=== PATIENT | female | born 1940 | race Caucasian/White ===

== ENCOUNTER 2017-12-01 18:37 | Emergency (ER) | payer MEDICARE ==
--- OUTSIDE RECORDS SUMMARY | 2017-12-01 18:56 | XMS REPORT ---
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 Active Onset: 08/14/2007 Hyperlipidemia Jay Smart M.D. Active Onset: 08/14/2007 Osteochondropathy Jay Smart M.D. Active Onset: 09/08/2017 Idiopathic scoliosis AND/OR Laurence Levin M.D. Active kyphoscoliosis Family History Date Family Member(s) Problem(s) Comments General No family hx lung,colon, breast CA.No fam hx DM. Father 82 dt pneumonia, MRSA. [place]. Mother Sep 06, 2009. fell down the stairs. age 91. Neuropathy. First Son high cholesterol. poor eyesight. [facility] Second Son high cholesterol, HTN. [place]. First Daughter food allergies. Julian. Second Brother ministrokes. diverticulitis Third Brother esophageal stricture. Social History Type Date Description Comments Education Highest level of education completed is 12th grade Marital Status Patient is . of colon cancer 1997. 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 Cigarette Use Never Smoked Cigarettes ETOH Use Rare once in a blue hutchison, at special occNeuMoDx Molecular. Smoking Patient has never smoked Exercise Type/Frequency Exercises rarely active with Current grandchildren, gardening. Formula XO senior strength training exercise 2x/week. Seat Belt/Car Seat Always uses a seat belt Smoke Alarms There are smoke alarms in the house Allergies, Adverse Reactions, Alerts Date Description Reaction Status Severity Comments 04/05/2000 Amoxicillin active Medications Medication Date Status Form Strength Qnty SIG Indications Ordering Provider Tums 10/18 Active Chewtabs 500mg 60uni 2 po R05 Kenna ts daily Patel, BACON STRINGER Irbesartan 09/08 Active Tablets 150mg 30tab 1 by R05 Laurence L. /2017 s mouth Ollie, every day M.D. Metoprolol 09/08 Active Tablets 25mg 90tab take one Laurence LJenifer Tartrate /2017 s tablet by Ollie, mouth M.D. once a day Flonase Allergy 08/02 Active Suspension 50mcg/Act 3Mont 2 sprays Elaina C. 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 day Wrist-Thumb 09/28 Active Misc Right 1unit to wear 959.3 [place] Support/Neoprene /2012 s on right Aniket, wrist as Afnp-C directed Vitamin D3 05/05 Active 2000Unit 90uni 1 po qd E55.9 Joyce Gerber. /2010 esperanza Griffith M.D. Fenofibrate 08/05 Active Tablets 160mg 90tab Take 1 Laurence L. /2009 s Tablet By Ollie, Mouth M.D. Every Day Hydrochlorothiazi 05/06 Active Capsules 12.5mg 90cap Take 1 I10 Laurence Wilder de s Capsule Ollei, By Mouth M.D. Every Morning Calcium Active Caplets 1000 1 po qd Unknown /0000 Fish Oil Active Capsules 1000mg take one Unknown /0000 capsule by mouth every day (heart health) Multivitamin Active Tablets 1 by Unknown Adult /0000 mouth every day Magnesium Active once a Unknown /0000 day Metoprolol 09/05 Hx Tablets ER 50mg 90tab take 02/07 Laurence L. Succinate ER 24HR s tablet by Ollie, - mouth M.D. 09/08 once day. Doxycycline 06/11 Hx Tablets 100mg 6tabs 2 by S70.262A Jocelyne Doran Hyclate /2016 mouth Nicola, MAINTENANCE PARTS TECHNICIAN - once for 09/07 each tick bite Azithromycin 02/22 Hx Tablets 250mg 6tabs 2 by R05 Laurence LJenifer /2016 mouth Ollie, - today. 1 M.D. 03/08 by mouth daily x 4 Cheratussin ac 03/10 Hx Syrup 100-10mg/ 120ml 2 J06.9 5ML teaspoon Ankit, - every 4 BACON STRINGER 06/09 hours needed Doxycycline 03/10 Hx Tablets 100mg 20tab 1 by J06.9 Mindy ate s mouth Ankit, - twice a BACON STRINGER 07/15 day x 10 Clotrimazole/Beta 12/11 Hx Cream 1-0.05% 30gm apply bid 782.1 [place] methasone for no Aniket, Dipropionate - more then Afnp-C 04/26 2 wk Azithromycin 05/10 Hx Tablets 250mg 6tabs 2 po 461.0 Dean A. /2012 today and Jamin Handley - 1 po x 4 Medrol Dosepak 05/10 Hx Tablets 4mg 1tabs use as 461.0 Dean A. directed Jamin Handley - 11/20 Flonase 05/10 Hx Suspension 50mcg/Act 3Mont 2 sprays Laurence Hdz /2012 hs each meron Levin, - qd; june M.D. 08/02 fill generic Physical Therapy 05/06 Hx dx:neck Joyce M. /2010 pain, LaFace, - muscle M.D. 05/10 spasm (normal c-spine xray); assess and treat Omeprazole 05/05 Hx Capsules 20mg 90cap take [address] tammie Levin, - by mouth M.D. 01/18 every day Zithromax 01/23 Hx Tablets 250mg 1tabs 2 po qd 461.8 Jay F. Bing rocha - then 1 po M.D. 01/30 qd times 4 Meclizine HCL 05/05 Hx Tablets 25mg 30tab 1 po q 8 . s hours prn Karen Griffith M.DJenifer 05/05 Guafenesin 05/05 Hx 600mg 30uni 2 po bid ts Karen Griffith M.DJenifer 05/05 Actonel 02/10 Hx Tablets 150mg once a 272.4 . month Karen GriffithDJenifer 05/10 Zithromax 03/21 Hx Tablets 250mg 1tabs 2 po qd 461.8 . Nacho rocha - then 1 po M.D. 03/30 qd times 4 Actonel 08/13 Hx Tablets 35mg 90tab 1 q week Jay F. /2007 Karen Magdaleno.DJenifer 03/21 Fenofibrate 07/16 Hx Capsules 134mg 90cap 1 po qd Jay F. Micron Karen MagdalenoDJenifer 05/05 Fenofibrate 07/05 Hx Tablets 54mg 30tab 1 PO qd Jay F. Karen Magdaleno.DJenifer 07/05 Fenofibrate 07/05 Hx Tablets 54mg 180ta 2 PO qd Jay F. /2007 bs Karen Smart.DJenifer 07/16 Flonase 11/29 Hx [place] 50mcg/Spr 3Mont 2 sprays . ay hs each meron Griffith - qd M.D. 05/10 Nasacort Aq 07/26 Hx Suspension 55mcg/Act 1unit 2 sprays Louise Intranasal [place] /2004 uation s each Fish, - nares qd Afnp-C 11/29 Tricor 04/29 Hx 48mg 135un 1 1 Jay F. /2004 its tabs po Shallmechelle, - qd M.D. 07/05 Robitussin ac 01/23 Hx 40Z 1 tsp po Maria Guadalupe R q4h prn Kofi, - BACON STRINGER-C 07/26 Tricor 10/19 Hx 54mg 30uni 1 po qd Louise [facility], - Afnp-C 04/29 Antivert 08/18 Hx 25mg 15uni 1 po q 8 hrs prn [facility], - Afnp-C 07/26 HCTZ - 05/06 Hx 12.5mg 90uni 1 po qam Dean A. Hydrochlorothiaz esperanza Handley M.D. de - 05/09 Biaxin 02/27 Hx 500mg 20uni 1 po bid [facility], - Afnp-C 03/01 Biaxin 02/15 Hx Tabs 500mg 20tab 1 po bid [facility], - Afnp-C 02/25 Zithromax 10/10 Hx 250mg 6unit 2 Tabs Mindy s Day 1 Ankit, - BACON STRINGER 05/06 1 Tab qd Days 2 Thru 5 Robitussin ac 10/10 Hx Liq 4Oz 12-1 TSP Maria Guadalupe PO Q4HS Kofi, - prn Cough BACON STRINGER-C 05/06 Doxycycline 12/04 Hx 100mg 20uni 1 po bid Maria Guadalupe Kofi, - BACON STRINGER-C 07/26 Biaxin 12/01 Hx Tabs 500mg 20tab 1 PO bid [facility], - Afnp-C 12/04 Premarin 04/05 Hx 0.625mg 0unit 1 PO 1-2 [facility] [place] Claritin 04/05 Hx 10mg 30uni 1 PO qd Jay F. esperanza Smart - Jamin 07/26 Vasotec 04/05 Hx Tablets 20mg 90tab take 1 R05 Laurence LJenifer s tablet by Ollie, - mouth M.DJenifer 09/08 every day /2017 -- maximum dose of 1 per day Atenolol 04/05 Hx Tablets 50mg 90tab Take 02/07 I1 s Tablet By Ankit, - Mouth BACON STRINGER 09/07 Actonel Hx Tablets 150mg use 1 a / month - 02/10 Medications Administered in Office Medication Date Status Form Strength Qnty SIG Indications Ordering Provider TB Intradermal Administered Injection Joyce North Test 010 Jamin Griffith TB Intradermal Administered Injection Jay FJenifer Test 008 Jamin Smart TB Intradermal Administered Injection Jay F. Test 006 Jamin Smart TB Intradermal Administered Injection Louise Test 004 Anastasia Whitten TB Intradermal Administered Injection Nurse, Test 004 Nurse TB Intradermal Administered Injection Nurse, Test 002 Nurse Immunizations CPT Code Status Date Vaccine Lot # [id number] Given 12/06/2016 High-Dose, Influenza Virus Vacccine-fluzone 65 and older 44540 Given 12/26/2014 Pneumococcal Conjugate Vacc-13 [id number] 52957 Given 12/06/2014 High-Dose, Influenza Virus Vacccine-fluzone 65 and older 19018 Given 12/31/2013 High-Dose, Influenza Virus Vacccine-fluzone 65 and older 86208 Given 11/20/2012 High-Dose, Influenza Virus Vacccine-fluzone 65 and [id number] older 70914 Given 08/22/2011 Tdap Tetanus, W Pertussis [id number] 79879 Given 11/18/2010 DO Not Use Split Influenza Virus Vaccine 46304 Given 02/10/2009 Zostivax [id number] 16022 Given 01/10/2009 DO Not Use Split Influenza Virus Vaccine [id number] 50174 Given 12/22/2007 DO Not Use Split Influenza Virus Vaccine [id number] 94275 Given 08/14/2007 Pneumococcal Immunization [id number] 14772 Given 11/29/2006 DO Not Use Split Influenza Virus Vaccine [id number] 38468 Given 02/01/2006 DO Not Use Split Influenza Virus Vaccine [id number] 60677 Given 12/31/2002 DO Not Use Split Influenza Virus Vaccine 33774 Given 12/31/2002 DO Not Use Split Influenza Virus Vaccine 40452 Given 12/01/2001 DO Not Use Split Influenza Virus Vaccine 63990 Given 01/03/2001 Influenza Immunization Vital Signs Date Vital Result Comment 11/15/2017 BP Systolic 126 mmHg BP Diastolic 80 mmHg Heart Rate 56 /min Body Temperature 97.4 F Respiratory Rate 16 /min Weight 117.00 lb 10/18/2017 BP Systolic 148 mmHg BP Diastolic 78 mmHg Heart Rate 72 /min Body Temperature 97.3 F Respiratory Rate 18 /min Weight 117.38 lb 09/08/2017 BP Systolic 138 mmHg BP Diastolic 82 mmHg Heart Rate 60 /min Body Temperature 97.2 F Height 62 inches 5'2" Weight 115.00 lb BMI (Body Mass Index) 21.0 kg/m2 06/11/2016 BP Systolic 126 mmHg BP Diastolic 74 mmHg Heart Rate 56 /min Body Temperature 98.6 F Respiratory Rate 16 /min Height 62 inches 5'2" Weight 124.12 lb BMI (Body Mass Index) 22.7 kg/m2 02/23/2016 BP Systolic 128 mmHg BP Diastolic 80 mmHg Heart Rate 64 /min Body Temperature 98.3 F Respiratory Rate 16 /min Height 62 inches 5'2" Weight 126.00 lb BMI (Body Mass Index) 23.0 kg/m2 01/19/2016 BP Systolic 120 mmHg BP Diastolic 78 mmHg Heart Rate 60 /min Body Temperature 98.2 F Respiratory Rate 16 /min Height 62 inches 5'2" Weight 124.00 lb BMI (Body Mass Index) 22.7 kg/m2 08/05/2015 BP Systolic 130 mmHg BP Diastolic 88 mmHg Heart Rate 68 /min Body Temperature 98.3 F Respiratory Rate 18 /min Weight 128.00 lb 07/16/2015 BP Systolic 188 mmHg BP Diastolic 92 mmHg BP Systolic Recheck 142 mmHg after 20 min BP Diastolic Recheck 92 mmHg after 20 min Heart Rate 68 /min Body Temperature 97.2 F Respiratory Rate 18 /min Height 62 inches 5'2" Weight 130.00 lb BMI (Body Mass Index) 23.8 kg/m2 03/10/2015 BP Systolic 190 mmHg BP Diastolic 82 mmHg Heart Rate 68 /min Body Temperature 97.2 F Height 62 inches 5'2" Weight 127.00 lb BMI (Body Mass Index) 23.2 kg/m2 12/26/2014 BP Systolic 120 mmHg BP Diastolic 88 mmHg Heart Rate 64 /min Body Temperature 99.0 F Respiratory Rate 18 /min Height 62 inches 5'2" Weight 126.00 lb BMI (Body Mass Index) 23.0 kg/m2 04/26/2013 BP Systolic 120 mmHg BP Diastolic 70 mmHg Heart Rate 60 /min Body Temperature 98.1 F Respiratory Rate 18 /min Height 62.75 inches 5'2.75" measured Weight 135.00 lb BMI (Body Mass Index) 24.1 kg/m2 12/11/2012 BP Systolic 130 mmHg BP Diastolic 86 mmHg Heart Rate 60 /min Body Temperature 98.2 F Height 62.75 inches 5'2.75" measured Weight 135.00 lb BMI (Body Mass Index) 24.1 kg/m2 11/20/2012 BP Systolic 120 mmHg BP Diastolic 74 mmHg Heart Rate 48 /min Body Temperature 97.7 F Respiratory Rate 16 /min Height 62.75 inches 5'2.75" measured Weight 131.12 lb BMI (Body Mass Index) 23.4 kg/m2 09/28/2012 BP Systolic 138 mmHg BP Diastolic 86 mmHg Heart Rate 66 /min Body Temperature 98.9 F Respiratory Rate 16 /min Height 62.5 inches 5'2.50" Weight 136.00 lb BMI (Body Mass Index) 24.5 kg/m2 05/10/2012 BP Systolic 168 mmHg BP Diastolic 70 mmHg Heart Rate 66 /min Body Temperature 97.9 F Height 62.5 inches 5'2.50" Weight 141.50 lb BMI (Body Mass Index) 25.5 kg/m2 05/11/2011 BP Systolic 120 mmHg BP Diastolic 80 mmHg Heart Rate 60 /min Body Temperature 98.5 F Height 62.5 inches 5'2.50" Weight 134.00 lb BMI (Body Mass Index) 24.1 kg/m2 05/05/2010 BP Systolic 110 mmHg BP Diastolic 60 mmHg Heart Rate 68 /min Respiratory Rate 15 /min Height 62.5 inches 5'2.50" Weight 135.00 lb BMI (Body Mass Index) 24.3 kg/m2 05/05/2009 BP Systolic 142 mmHg BP Diastolic 80 mmHg Heart Rate 52 /min Weight 141.00 lb 02/10/2009 BP Systolic 132 mmHg BP Diastolic 76 mmHg Heart Rate 76 /min Respiratory Rate 16 /min Height 62.5 inches 5'2.50" Weight 138.00 lb BMI (Body Mass Index) 24.8 kg/m2 03/21/2008 BP Systolic 120 mmHg BP Diastolic 70 mmHg Heart Rate 68 /min Body Temperature 99.1 F Weight 133.00 lb 08/14/2007 BP Systolic 142 mmHg BP Diastolic 78 mmHg Heart Rate 72 /min Body Temperature 98.6 F Height 62.5 inches 5'2.50" Weight 131.00 lb BMI (Body Mass Index) 23.6 kg/m2 01/23/2007 BP Systolic 124 mmHg BP Diastolic 74 mmHg Heart Rate 80 /min Body Temperature 98.2 F Height 62.5 inches 5'2.50" Weight 130.00 lb BMI (Body Mass Index) 23.4 kg/m2 12/25/2006 BP Systolic 148 mmHg BP Diastolic 84 mmHg Heart Rate 64 /min Body Temperature 97.6 F Weight 129.00 lb 11/29/2006 BP Systolic 160 mmHg BP Diastolic 90 mmHg Heart Rate 76 /min Weight 128.00 lb 11/09/2005 BP Systolic 122 mmHg BP Diastolic 72 mmHg Heart Rate 66 /min Respiratory Rate 12 /min 05/26/2005 BP Systolic 128 mmHg BP Diastolic 80 mmHg Heart Rate 76 /min Respiratory Rate 15 /min 07/26/2004 BP Systolic 132 mmHg BP Diastolic 70 mmHg Heart Rate 60 /min Weight 126.00 lb 01/24/2004 BP Systolic 128 mmHg BP Diastolic 78 mmHg Heart Rate 80 /min Body Temperature 97.1 F Weight 126.00 lb 01/24/2004 BP Systolic 130 mmHg BP Diastolic 80 mmHg Heart Rate 76 /min Body Temperature 98.6 F Weight 180.00 lb 12/10/2003 BP Systolic 132 mmHg BP Diastolic 82 mmHg Heart Rate 74 /min 09/17/2003 BP Systolic 130 mmHg BP Diastolic 86 mmHg Heart Rate 60 /min Weight 133.00 lb 07/23/2003 BP Systolic 150 mmHg BP Diastolic 88 mmHg Heart Rate 74 /min Weight 138.00 lb 05/07/2003 BP Systolic 152 mmHg BP Diastolic 100 mmHg Heart Rate 62 /min Weight 138.00 lb 02/15/2003 BP Systolic 140 mmHg BP Diastolic 80 mmHg Body Temperature 98.6 F Weight 137.00 lb 10/10/2002 BP Systolic 130 mmHg BP Diastolic 80 mmHg Heart Rate 78 /min Body Temperature 97.9 F Weight 140.00 lb 08/23/2002 BP Systolic 174 mmHg BP Diastolic 100 mmHg Heart Rate 64 /min Weight 139.00 lb 12/01/2001 BP Systolic 152 mmHg BP Diastolic 80 mmHg Heart Rate 64 /min Body Temperature 97.8 F Weight 135.00 lb 05/03/2000 BP Systolic 148 mmHg BP Diastolic 84 mmHg Heart Rate 60 /min Body Temperature 97.3 F Weight 134.00 lb 04/05/2000 BP Systolic 160 mmHg BP Diastolic 90 mmHg Heart Rate 60 /min Body Temperature 98.1 F Weight 134.00 lb Results Test Date Test Result H/L Range Note Lipid Profile 09/08/2017 Cholesterol 160 mg/dL 120-200 Triglycerides 86 mg/dL 30-200 HDL Cholesterol 55 mg/dL 30-85 LDL (Calculated) 88 CALC 0-129 VLDL Cholesterol 17 mg/dL 0-50 HDL Risk Factor 2.9 CALC 0.0-4.4 CBC Electronic Fma 09/08/2017 WBC 6.6 x10^3/UL 4.0-10.0 RBC 3.94 x10^6/UL 3.93-6.00 HGB 12.0 g/dL 12.0-17.0 HCT 36 % 35-50 MCV 91.6 fL 80.0-95.0 MCH 30.5 pg 25.6-32.2 MCHC 33.2 g/dL 32.2-36.0 RDW-CV 15.3 % High 11.6-14.4 PLT 251 x10^3/UL 163-400 MPV 10.2 fL 9.4-12.4 [place]am[place]# 3.99 x10^3/UL 1.56-6.13 Lymph# 1.82 x10^3/UL 1.18-3.74 [place]# 0.52 x10^3/UL 0.24-0.82 Eos # 0.1 x10^3/UL 0.0-0.5 Baso # 0.10 x10^3/UL High 0.01-0.08 [place]amir% 60.9 % 34.0-70.0 Lymph % 27.8 % 20.0-52.0 [place]% 7.9 % 5.0-12.0 Eos% 1.7 % 0.7-7.0 Baso% 1.5 % High 0.1-1.2 Laboratory test finding 09/08/2017 CK 128 U/L 26-140 TSH 2.65 mIU/L 0.50-6.00 Vitamin D25 61 30-100 Comprehensive Metabolic Prof 09/08/2017 Sodium 138 mEq/L 134-149 Potassium 3.2 mEq/L Low 3.6-5.5 1 Chloride 100 mEq/L 94-112 Carbon Dioxide 28 mEq/L 21-32 Glucose 96 mg/dL 70-105 BUN 29 mg/dL High 6-26 Creatinine 0.9 mg/dL 0.6-1.4 BUN/Creat Ratio 32.2 CALC 8.0-36.0 Calcium 9.7 mg/dL 8.6-10.2 Total Protein 7.2 g/dL 6.4-8.3 Albumin 4.5 g/dL 3.8-5.5 Globulin 2.7 g/dL 2.0-4.8 A/G Ratio 1.7 CALC 0.6-2.3 Alk. Phosphatase 34 U/L 30-110 Alt (SGPT) 24 U/L 7-35 Ast (Sgot) 37 U/L High 5-34 2 Total Bilirubin 0.5 mg/dL 0.2-1.3 GFR Non- >60 ml/min/1.73m^ >=60 GFR >60 ml/min/1.73m^ >=60 Laboratory test finding 04/26/2016 Surgical Interface SEE RESULT BELOW 3 Order Laboratory test finding 02/23/2016 BUN 23 mg/dL 6-26 Creatinine 0.9 mg/dL 0.6-1.4 Comprehensive Metabolic Prof 02/09/2016 Sodium 143 mEq/L 134-149 Potassium 5.2 mEq/L 3.6-5.5 Chloride 103 mEq/L 94-112 Carbon Dioxide 29 mEq/L 21-32 Glucose 105 mg/dL 70-105 BUN 26 mg/dL 6-26 Creatinine 1.0 mg/dL 0.6-1.4 BUN/Creat Ratio 26.0 CALC 8.0-36.0 Calcium 10.0 mg/dL 8.6-10.2 Total Protein 7.1 g/dL 6.4-8.3 Albumin 4.1 g/dL 3.8-5.5 Globulin 3.0 g/dL 2.0-4.8 A/G Ratio 1.4 CALC 0.6-2.3 Alk. Phosphatase 35 U/L 30-110 Alt (SGPT) 18 U/L 7-35 Ast (Sgot) 29 U/L 5-34 Total Bilirubin 0.5 mg/dL 0.2-1.3 GFR Non- 58 ml/min/1.73m^ Low >=60 GFR >60 ml/min/1.73m^ >=60 Complete Blood Count 02/09/2016 WBC 5.4 x10^3/UL 3.6-9.6 RBC 3.98 x10^6/UL 3.90-5.70 HGB 12.6 g/dL 12.1-17.2 HCT 37 % 36-50 MCV 92.0 fL 82.2-97.4 MCH 31.6 pg 27.6-33.3 MCHC 34.5 g/dL 33.0-35.5 RDW 14.6 % High 11.6-13.7 PLT 214 x10^3/UL 150-400 MPV 7.6 fL 7.4-10.4 Gran # 2.9 x10^3/UL 1.5-7.2 Lymph# 2.2 x10^3/UL 0.7-4.9 [place]# 0.3 x10^3/UL 0.1-0.9 Gran % 51.3 % 42.2-75.2 Lymph % 42.6 % 20.5-51.1 [place]% 6.1 % 1.7-9.3 Laboratory test finding 02/09/2016 TSH 2.97 mIU/L 0.50-6.00 Lipid Profile 02/09/2016 Cholesterol 163 mg/dL 120-200 Triglycerides 121 mg/dL 30-200 HDL Cholesterol 57 mg/dL 30-85 LDL (Calculated) 82 CALC 0-129 VLDL Cholesterol 24 mg/dL 0-50 HDL Risk Factor 2.9 CALC 0.0-4.4 Urine Culture Routine 01/19/2016 Urine Culture, Routine Final report 4 , 5 Result 1 No growth 4, 6 Ua - Micro (Fma) 01/19/2016 Appearance clear Color yellow Glucose, Urine (Fma/CMC/CTX) - Bilirubin - Ketones - SP Grav 1.015 Blood trace (intact) PH 7.5 Protein - Urobil 0.2 Nitrite - Leukocytes (Fma/CMC/Centrex) - Hyaline - /Lpf Granular - /Lpf WBC (Fma,Centrex) 0-1 RBC 0-1 Mucus (Fma/CBC/Centrex) - /Lpf Epith rare /Lpf Bacteria rare /Hpf Amorphous (Fma/CMC/Centrex) - /Lpf Crystals, Fluid (Fma/CMC/CTX) - Z#Comments - Ict-Hemoccult (MCR)Fma Screeni 08/27/2015 Ict Hemoccult (1) NEG Ict Hemoccult-(2) NEG Ict-Hemoccult (3) NEG Comprehensive Metabolic Prof 07/16/2015 Sodium 141 mEq/L 134-149 Potassium 3.6 mEq/L 3.6-5.5 Chloride 100 mEq/L 94-112 Carbon Dioxide 27 mEq/L 21-32 Glucose 85 mg/dL 70-105 BUN 21 mg/dL 6-26 Creatinine 0.8 mg/dL 0.6-1.4 BUN/Creat Ratio 26.3 CALC 8.0-36.0 Calcium 10.6 mg/dL High 8.6-10.2 7 Total Protein 8.0 g/dL 6.4-8.3 Albumin 4.8 g/dL 3.8-5.5 Globulin 3.2 g/dL 2.0-4.8 A/G Ratio 1.5 CALC 0.6-2.3 Alk. Phosphatase 36 U/L 30-110 Alt (SGPT) 23 U/L 7-35 Ast (Sgot) 37 U/L High 5-34 8 Total Bilirubin 0.3 mg/dL 0.2-1.3 GFR Non- >60 ml/min/1.73m^ >=60 GFR >60 ml/min/1.73m^ >=60 Laboratory test finding 07/16/2015 Vitamin B-12 973 pg/mL 230-1050 9 Magnesium, Serum 2.1 mEq/L 1.2-2.1 Ua - Micro ([facility]) 07/16/2015 Appearance clear Color yellow Glucose, Urine (Fma/CMC/CTX) neg Bilirubin neg Ketones neg SP Grav 1.015 Blood neg PH 7.0 Protein neg Urobil 0.2 Nitrite neg Leukocytes (Fma/CMC/Centrex) neg Hyaline - /Lpf Granular - /Lpf WBC (Fma,Centrex) 2-3 RBC 0-1 Mucus (Fma/CBC/Centrex) - /Lpf Epith few /Lpf Bacteria trace /Hpf Amorphous (Fma/CMC/Centrex) - /Lpf Crystals, Fluid (Fma/CMC/CTX) - Z#Comments - CBC Electronic (a) 07/16/2015 WBC 6.1 3.6-9.6 RBC 4.33 3.90-5.70 Hemoglobin (Fma/CMC/CTX) 13.4 g/dL 12.1 - 17.2 Hematocrit (Fma/CMC/CTX) 40.8 % 36.1 - 50.3 Platelets 278 10^3/ul 150-400 Lymph% 35.8 % 17.0-48.0 Mixed% 6.2 Neutrophils % 58.0 Mean Corpuscular Vol 94 82.2-97.4 Mean Corpuscular Hemoglobin 31.0 27.6-33.3 Mean Corpuscular Hemo Concen 33.0 32.0-36.0 RDW 14.2 High 11.6-13.7 Mean Platelet Volume 7.4 5.5-11.0 Complete Blood Count 11/12/2014 WBC 5.0 x10^3/UL 3.6-9.6 RBC 4.36 x10^6/UL 3.90-5.70 HGB 13.8 g/dL 12.1-17.2 HCT 41 % 36-50 MCV 93.0 fL 82.2-97.4 MCH 31.0 pg 27.6-33.3 MCHC 33.4 g/dL 33.0-35.5 RDW 13.7 % 11.6-13.7 PLT 212 x10^3/UL 150-400 MPV 7.4 fL 7.4-10.4 Gran # 1.8 x10^3/UL 1.5-7.2 Lymph# 2.2 x10^3/UL 0.7-4.9 [place]# 0.4 x10^3/UL 0.1-0.9 Gran % 49.4 % 42.2-75.2 Lymph % 44.0 % 20.5-51.1 [place]% 6.6 % 1.7-9.3 Comprehensive Metabolic Prof 11/12/2014 Sodium 142 mEq/L 134-149 Potassium 3.7 mEq/L 3.6-5.5 Chloride 100 mEq/L 94-112 Carbon Dioxide 30 mEq/L 21-32 Glucose 96 mg/dL 70-105 BUN 18 mg/dL 6-26 Creatinine 0.7 mg/dL 0.6-1.4 BUN/Creat Ratio 25.7 CALC 8.0-36.0 Calcium 9.4 mg/dL 8.6-10.2 Total Protein 7.2 g/dL 6.4-8.3 Albumin 4.3 g/dL 3.8-5.5 Globulin 2.9 g/dL 2.0-4.8 A/G Ratio 1.5 CALC 0.6-2.3 Alk. Phosphatase 46 U/L 30-110 Alt (SGPT) 19 U/L 7-35 Ast (Sgot) 27 U/L 5-34 Total Bilirubin 0.6 mg/dL 0.2-1.3 GFR Non- >60 ml/min/1.73m^ >=60 GFR >60 ml/min/1.73m^ >=60 Lipid Profile 11/12/2014 Cholesterol 299 mg/dL High 120-200 Triglycerides 194 mg/dL 30-200 HDL Cholesterol 57 mg/dL 30-85 LDL (Calculated) 203 CALC High 0-129 VLDL Cholesterol 39 mg/dL 0-50 HDL Risk Factor 5.2 CALC High 0.0-4.4 Laboratory test finding 11/12/2014 TSH 1.95 mIU/L 0.50-6.00 10 Free T4 0.93 ng/dL 0.75-1.54 Vitamin D25 53 30-100 Comprehensive Metabolic Prof 11/20/2012 Albumin 4.6 g/dL 3.8-5.5 Alk. Phos. 33 U/L 30-110 Alt (SGPT) 19 U/L 7-35 Ast (Sgot) 33 U/L 5-34 BUN 24 mg/dL 6-26 Calcium 9.6 mg/dL 8.6-10.2 Chloride 98 mEq/L 94-112 Creatinine 1.0 mg/dL 0.6-1.4 Carbon Dioxide 28 mEq/L 21-32 Glucose 101 mg/dL 70-105 Sodium 138 mEq/L 134-149 Total Bilirubin 0.5 mg/dL 0.2-1.3 Total Protein 7.0 g/dL 6.3-8.1 Potassium 3.9 mEq/L 3.6-5.5 Globulin 2.4 g/dL 2.0-4.8 A/G Ratio 1.9 Calc 0.6-2.3 BUN/Creat Ratio 25.0 Calc 8.0-36.0 Lipid Profile 11/20/2012 Cholesterol 194 mg/dL 120-200 HDL 52 mg/dL 30-85 Triglycerides 108 mg/dL 30-200 HDL Risk Factor 3.7 CALC 0.0-4.4 LDL (Calculated) 120 CALC 0-129 VLDL (Calculated) 22 mg/dL 0-50 Laboratory test finding 11/20/2012 TSH 1.70 mIU/L 0.50-6.00 CBC Electronic ([facility]) 11/20/2012 WBC 6.9 3.6-9.6 RBC 4.11 3.90-5.70 Hemoglobin (Fma/CMC/CTX) 12.7 g/dL 12.1 - 17.2 Hematocrit (a/CMC/CTX) 37.7 % 36.1 - 50.3 Platelets 247 10^3/ul 150-400 Lymph% 27.4 20.5-51.1 Mixed% 4.0 Neutrophils % 68.6 Mean Corpuscular Vol 92 82.2-97.4 Mean Corpuscular Hemoglobin 30.8 27.6-33.3 Mean Corpuscular Hemo Concen 33.6 32.0-36.0 RDW 14.3 High 11.6-13.7 Mean Platelet Volume 7.1 6.5-11.0 Ua - Non Micro ([facility]) 11/20/2012 Appearance clear Color yellow Glucose - Bilirubin - Ketones - SP Grav 1.015 Blood - PH 7.5 Protein - Urobil 0.2 Nitrite - Leukocytes ([facility] - Lipid Profile 05/26/2011 Cholesterol 221 mg/dL High 120-200 HDL 58 mg/dL 30-85 Triglycerides 96 mg/dL 30-200 HDL Risk Factor 3.8 CALC 0.0-4.0 LDL (Calculated) 144 CALC High 0-129 VLDL (Calculated) 19 mg/dL 0-50 Comprehensive Metabolic Prof 05/26/2011 Albumin 4.9 g/dL 3.8-5.5 Alk. Phos. 44 U/L 30-110 Alt (SGPT) 24 U/L 7-35 Ast (Sgot) 35 U/L High 5-34 11 BUN 26 mg/dL 6-26 Calcium 10.2 mg/dL 8.6-10.2 Chloride 102 mEq/L 94-112 Creatinine 1.1 mg/dL 0.6-1.4 Carbon Dioxide 31 mEq/L 21-32 Glucose 101 mg/dL 70-105 Sodium 139 mEq/L 134-149 Total Bilirubin 0.4 mg/dL 0.2-1.3 Total Protein 7.6 g/dL 6.3-8.1 Potassium 3.7 mEq/L 3.6-5.5 Globulin 2.7 g/dL 2.0-4.8 A/G Ratio 1.8 Calc 0.6-2.2 BUN/Creat Ratio 23.7 Calc 8.0-36.0 Laboratory test finding 05/26/2011 Vitamin D, 25 Oh 41.0 ng/mL 30.0- 100.0 12 Electrolytes Profile 06/10/2010 Chloride 97 mEq/L 94-112 Carbon Dioxide 31 mEq/L 21-32 Sodium 136 mEq/L 134-149 Potassium 3.9 mEq/L 3.6-5.5 Anion Gap 11.6 RATIO 7.0-34.0 Laboratory test finding 05/26/2010 Clotest NEGATIVE Comprehensive Metabolic Prof 05/18/2010 Albumin 4.7 g/dL 3.8-5.5 Alk. Phos. 29 U/L Low 30-110 13 Alt (SGPT) 21 U/L 7-35 Ast (Sgot) 33 U/L 5-34 BUN 23 mg/dL 6-26 Calcium 9.8 mg/dL 8.6-10.2 Chloride 99 mEq/L 94-112 Creatinine 1.1 mg/dL 0.6-1.4 Carbon Dioxide 27 mEq/L 21-32 Glucose 103 mg/dL 70-105 Sodium 139 mEq/L 134-149 Total Bilirubin 0.5 mg/dL 0.2-1.3 Total Protein 7.3 g/dL 6.3-8.1 Potassium 3.5 mEq/L Low 3.6-5.5 14 Globulin 2.6 g/dL 2.0-4.8 A/G Ratio 1.8 Calc 0.6-2.2 BUN/Creat Ratio 20.3 Calc 8.0-36.0 Lipid Profile 05/18/2010 Cholesterol 196 mg/dL 120-200 HDL 54 mg/dL 30-85 Triglycerides 95 mg/dL 30-200 HDL Risk Factor 3.7 CALC 0.0-4.0 LDL (Calculated) 123 CALC 0-129 VLDL (Calculated) 19 mg/dL 0-50 CBC Electronic (Fma) 05/18/2010 WBC 5.3 3.6-9.6 RBC 3.93 3.90-5.70 Hemoglobin (Fma/CMC/CTX) 12.2 g/dL 12.1 - 17.2 Hematocrit (Fma/CMC/CTX) 36.4 % 36.1 - 50.3 Platelets 237 10^3/ul 150-400 Lymph% 39.6 20.5-51.1 Mixed% 7.1 Neutrophils % 53.3 Mean Corpuscular Vol 93 82.2-97.4 Mean Corpuscular Hemoglobin 31.1 27.6-33.3 Mean Corpuscular Hemo Concen 33.6 32.0-36.0 RDW 12.2 11.6-13.7 Mean Platelet Volume 8.2 6.5-11.0 Laboratory test finding 05/18/2010 Vitamin D, 25 Oh 32.8 ng/mL 32.0- 100.0 15 Comprehensive Metabolic Prof 01/16/2010 Albumin 4.8 g/dL 3.8-5.5 Alk. Phos. 31 U/L 30-110 Alt (SGPT) 20 U/L 7-35 Ast (Sgot) 36 U/L High 5-34 16 BUN 21 mg/dL 6-26 Calcium 9.9 mg/dL 8.6-10.2 Chloride 103 mEq/L 94-112 Creatinine 1.1 mg/dL 0.6-1.4 Carbon Dioxide 27 mEq/L 21-32 Glucose 90 mg/dL 70-105 Sodium 142 mEq/L 134-149 Total Bilirubin 0.5 mg/dL 0.2-1.3 Total Protein 7.6 g/dL 6.3-8.1 Potassium 4.1 mEq/L 3.6-5.5 Globulin 2.8 g/dL 2.0-4.8 A/G Ratio 1.7 Calc 0.6-2.2 BUN/Creat Ratio 19.5 Calc 8.0-36.0 Lipid Profile 01/16/2010 Cholesterol 231 mg/dL High 120-200 HDL 61 mg/dL 30-85 Triglycerides 111 mg/dL 30-200 HDL Risk Factor 3.8 CALC Low 4.2-7.0 LDL (Calculated) 147 CALC High 0-129 VLDL (Calculated) 22 mg/dL 0-50 Laboratory test finding 01/16/2010 TSH 1.86 mIU/L 0.50-6.00 CBC (a) 01/16/2010 WBC 5.2 3.6-9.6 RBC 4.37 3.90-5.70 Hemoglobin (Fma/CMC/CTX) 13.7 g/dL 12.1 - 17.2 Hematocrit (Fma/CMC/CTX) 40.7 % 36.1 - 50.3 Platelets 269 10^3/ul 150-400 Lymph% 43.4 20.5-51.1 Mixed% 7.1 Neutrophils % 49.5 Mean Corpuscular Vol 93.1 82.2-97.4 Mean Corpuscular Hemoglobin 31.4 27.6-33.3 Mean Corpuscular Hemo Concen 33.7 32.0-36.0 RDW 14.3 High 11.6-13.7 Mean Platelet Volume 11.5 High 6.5-11.0 Laboratory test finding 01/16/2010 Vitamin D, 25 Oh 34.5 ng/mL 32.0- 100.0 17 Comprehensive Metabolic Prof 02/11/2009 Albumin 4.8 g/dL 3.8-5.5 Alk. Phos. 36 U/L 30-110 Alt (SGPT) 21 U/L 7-35 Ast (Sgot) 30 U/L 5-34 BUN 26 mg/dL 6-26 Calcium 10.0 mg/dL 8.6-10.2 Chloride 104 mEq/L 94-112 Creatinine 1.0 mg/dL 0.6-1.4 Carbon Dioxide 30 mEq/L 21-32 Glucose 98 mg/dL 70-105 Sodium 141 mEq/L 134-149 Total Bilirubin 0.4 mg/dL 0.2-1.3 Total Protein 7.3 g/dL 6.3-8.1 Potassium 4.1 mEq/L 3.6-5.5 Globulin 2.5 g/dL 2.0-4.8 A/G Ratio 1.9 Calc 0.6-2.2 BUN/Creat Ratio 27.1 Calc 8.0-36.0 Lipid Profile 02/11/2009 Cholesterol 226 mg/dL High 120-200 HDL 66 mg/dL 30-85 Triglycerides 121 mg/dL 30-200 HDL Risk Factor 3.4 CALC Low 4.2-7.0 LDL (Calculated) 136 CALC High 0-129 VLDL (Calculated) 24 mg/dL 0-50 Vitamin D 25 Hydroxy 02/11/2009 Vitamin D, 25-Hydroxy 35.1 ng/mL 32.0- 100.0 18 Comprehensive Metabolic 09/08/2007 Albumin 4.3 g/dL 3.8-5.5 19 AlkJenifer Phos. 32 U/L 30-110 19 Alt (SGPT) 25 U/L 7-35 19 Ast (Sgot) 37 U/L High 5-34 19, 20 BUN 20 mg/dL 6-26 19 Calcium 9.2 mg/dL 8.6-10.2 19 Chloride 101 mEq/L 94-112 19 Creatinine 1.2 mg/dL 0.6-1.4 19 Carbon Dioxide 32 mEq/L 21-32 19 Glucose 93 mg/dL 70-105 19 Sodium 142 mEq/L 134-149 19 Total Bilirubin 0.4 mg/dL 0.2-1.3 19 Total Protein 7.8 g/dL 6.3-8.1 19 Potassium 3.8 mEq/L 3.6-5.5 19 Globulin 3.5 g/dL 2.0-4.8 19 A/G Ratio 1.2 Calc 0.6-2.2 19 BUN/Creat Ratio 16.3 Calc 8.0-36.0 19 Lipid Profile 09/08/2007 Cholesterol 196 mg/dL 120-200 19 HDL 52 mg/dL 30-85 19 Triglycerides 83 mg/dL 30-200 19 HDL Risk Factor 3.8 CALC Low 4.2-7.0 19 LDL (Calculated) 127 CALC 0-129 19 VLDL (Calculated) 17 mg/dL 0-50 19 Laboratory test finding 09/08/2007 TSH 1.34 mIU/L 0.50-6.00 19 Ua - Non Micro ([facility]) 09/08/2007 Appearance CLEAR Color YELLOW Glucose, Urine (Fma/CMC/CTX) NEG Bilirubin NEG Ketones NEG SP Grav 1.015 Blood NEG PH 8.5 Protein NEG Urobil 0.2 Nitrite NEG Leukocytes (a/CMC/Centrex) NEG CBC ([facility]) 09/08/2007 WBC 4.7 3.6-9.6 RBC 3.97 3.90-5.70 Hemoglobin (Fma/CMC/CTX) 12.0 g/dL Low 12.1 - 17.2 Hematocrit (Fma/CMC/CTX) 36.8 % 36.1 - 50.3 Mean Corpuscular Vol 92.7 82.2-97.4 Mean Corpuscular Hemaglobin 30.2 27.6-33.3 Mean Corpuscular Hemo Concen 32.6 Low 33.0-36.0 Platelets 210 10^3/ul 150-400 Lymph% 45.2 20.5-51.1 Mixed% 10.1 Neutrophils % 44.7 RDW 14.1 High 11.6-13.7 Mean Platelet Volume 11.6 High 7.4-10.4 Ict Hemoccult (Fma) 02/12/2007 Ict Hemoccult (1) NEGATIVE Ict Hemoccult-(2) NEGATIVE Ict-Hemoccult (3) NEGATIVE CBC With Electronic Diff 12/02/2006 White Blood Count 5.5 CUMM 4.8-10.8 Abs Basophils 0 0-0.2 Abs Eosinophils 0.1 0-0.6 Absolute Neutrophil Count 2.7 1.5-7.7 Abs Lymphs 2.3 1.0-4.8 Abs Mononuclear 0.5 0-0.8 Basophil % 0.9 % 0-2 Hematocrit 38 % 35-47 Hemoglobin 12.8 g/dL 12.0-16.0 Eosinophil % 1.2 % 0-6 Gran % 48.4 % 38-83 Lymph % 41.1 % 20-45 Mean Corpuscular HGB Cone 34 g/dL 32-36 Mean Corpuscular Hemoglob 31 pg 27-31 Mean Corpuscular Volume 91 um3 79-97 Mean Platelet Volume 8.7 um3 7.4-10.4 Mononuclear % 8.4 % 1-9 Platelet Count 263 CUMM 150-450 Red Cell Count 4.16 CUMM Low 4.2-5.4 Redcell Distribution WDTH 14 % 10.5-15 Laboratory test finding 12/02/2006 Free Thyroxine 0.81 NG/ML 0.61-1.24 19, 21 Comp Metabolic Panel 12/02/2006 One Over Creatinine 0.83 19 Anion Gap 0 mmol/L Low 2-11 19, 22 Albumin/Globulin Ratio 1.3 1-3 19 Albumin 4.0 GM/DL 3.2-5.2 19 Alkaline Phosphatase 42 U/L 30-110 19 Alt (SGPT) 20 U/L 14-54 19 Ast (Sgot) 31 U/L 12-42 19 BUN 21 mg/dL 6-24 19 Calcium 9.4 mg/dL 8.7-10.2 19 Chloride 103 mmol/L 101-111 19 Co2 (Carbon Dioxide) 33.0 mmol/L High 22-32 19 Globulin 3.2 GM/DL 2-4 19 Glucose 96 mg/dL 70-105 19 Potassium 4.1 mmol/L 3.5-5.0 19 Sodium 136 mmol/L 135-145 19 Bilirubin Total 0.8 mg/dL 0.4-1.5 19 Total Protein 7.2 GM/DL 6.2-8.1 19 BUN/Creatinine Ratio 17.5 8-20 19 Creatinine 1.2 mg/dL 0.5-1.4 19 Lipid Profile 12/02/2006 Cholesterol/HDL Ratio 3.77 AVERAGE 1-4.44 19 (Trig/Chol/HDL) Cholesterol 200 mg/dL Less Than 200 19, 23 Triglyceride 132 mg/dL 40-200 19 High Density Lipoprotein 53 mg/dL 40-60 19 Low Density Lipoprotein 121 mg/dL High Less Than 100 19, 24 Laboratory test finding 12/02/2006 TSH 1.27 MIU/ML 0.34-5.60 19 Comp Metabolic ([facility]) 08/14/2004 Glucose, Serum 89 mg/dL 70-105 Female (Fma/CMC/CTX) BUN (a/[facility]rex) 18 mg/dL 6-26 Creatinine, Serum 1.1 mg/dL 0.6-1.4 BUN/Creatinin Ratio 16.4 8.0-36 Sodium 144 134-149 Potassium 3.8 3.6-5.5 Chloride 97 mEq/L 94-112 Co2 28 21-32 Calcium (a/CMC/Centrex) 9.3 mg/dL 8.6-10.2 Total Protein 7.4 g/dL 6.3-8.1 Albumin (a/CMCC/Centrex) 4.1 3.8-5.5 Globulin 3.2 2.0-4.8 A/G Ratio (A/G Ratio) 1.3 0.6-2.2 Alkaline Phosphatase (F/C/CTX) 48 U/L 22-95 Alt (SGPT) (a/CMC/Centrex) 18 7-35 Ast (Sgot) (a/[facility]) 21 U/mL 5-34 Bilirubin, Total 0.5 mg/dL 0.2-1.3 Lipid Profile ([facility]) Female 08/14/2004 Cholesterol 217 mg/dL High 120-200 Triglyceride 123 mg/dL 30-200 HDL-Chol 38 mg/dL 30-85 LDL, Calculated ([facility]) 154 CALC High 0-129 LDL, Direct - mg/dL 0-130 VLDL 25 0-50 HDL Risk Factor ([facility]) 5.7 CALC 4.2-7.0 Free T4/TSH 08/14/2004 TSH ([facility]) 1.48 uIU/ml 0.5-6.0 ([facility]) Free T4 1.00 ng/dL 0.75-1.54 CBC Electronic ([facility]) 08/14/2004 WBC 4.9 3.6-9.6 Lymphocytes 49.8 % 20.5 - 51.1 Monocytes 3.1 % 1.7-9.3 Granulocytes 47.1 % 42.2 - 75.2 Lymphocytes 2.4 10^3/uL 0.7 - 4.9 Monocytes 0.2 10^3/uL 0.1 - 0.9 Granulocytes 2.3 10^3/uL 1.5 - 7.2 RBC 4.15 3.90-5.70 Hemoglobin (a/CMC/CTX) 12.9 g/dL 12.1 - 17.2 Hematocrit ([facility]/CTX) 38.1 % 36.1 - 50.3 Mean Corpuscular Vol 91.8 82.2-97.4 Mean Corpuscular Hemaglobin 31.1 27.6-33.3 Mean Corpuscular Hemo Concen 33.8 33.0-36.0 RDW 13.1 11.6-13.7 Platelets 207. 10^3/ul 150-400 Mean Platelet Volume 8.2 7.4-10.4 CBC Electronic ([facility]) 12/30/2003 WBC 6.4 CUMM 4.8-10.8 RBC 3.76 CUMM Low 4.2-5.4 Hemoglobin (a/[facility]/CTX) 12.0 g/dL 12.0-16.0 Hematocrit ([facility]/CTX) 35 % 35-47 Mean Corpuscular Vol 93 UM3 79-97 Mean Corpuscular Hemaglobin 32 pg High 27-31 Mean Corpuscular Hemo Concen 34 g/dL 32-36 RDW 13 10.5-15 Platelets 216 CUMM 150-450 Mean Platelet Volume 8.6 7.4-10.4 Granulocytes 51.3 % 38-83 Lymphocytes 38.3 % 20-45 Monocytes 8.5 % 1-9 Eosinophil 1.1 0-6 Basophil% 0.8 0-2 Abs Lymphs 2.4 1.0-4.8 Abs Mononuclear 0.5 0-0.8 Abs Grans 3.3 1.5-7.7 Abs Eosinophils 0.1 0-0.6 Abs Basophils 0 0-0.2 Liver/Lipid Profile ([facility]) 12/20/2003 Total Protein 7.5 GM/DL 6.2-8.1 Albumin ([facility]rex) 4.1 3.2-5.2 Globulin 3.4 2-4 A/G Ratio (A/G Ratio) 1.2 1-3 Total Bilirubin 0.6 mg/dL 0.4-1.5 Bilirubin, Direct <0.1 mg/dL Low 0.1-0.5 Bilirubin, Indirect UNABLE TO CALCULATE mg/dL Low 0.1-0.75 Triglyceride 119 mg/dL 40-200 Cholesterol ([facility]rex) 215 mg/dL High <200 HDL-Chol 58 40-60 Cholesterol / HDL Ratio 3.71 AVG 1-4.4 LDL, Calculated ([facility]) 133 High <100 Alkaline Phosphatase (F/C/CTX) 39 U/L 30-110 Alt (SGPT) ([facility]) 20 14-54 Ast (Sgot) ([facility]) 25 12-42 Lipid Profile ([facility]) Female 09/20/2003 Cholesterol 231 mg/dL High 120-200 Triglyceride 496 mg/dL High 30-200 HDL-Chol 45 mg/dL 30-85 LDL, Calculated ([facility]) INVALID CALC 0-129 LDL, Direct 121 mg/dL 0-130 VLDL 99 High 0-50 HDL Risk Factor ([facility]) 5.2 CALC 4.2-7.0 Comp Metabolic ([facility]) 09/20/2003 Glucose, Serum ([facility]/CTX) 95 mg/dL 70- 118 Female BUN ([facility]rex) 12 mg/dL 6-26 Creatinine, Serum 0.9 mg/dL 0.6-1.4 BUN/Creatinin Ratio 12.9 8.0-36 Sodium 139 134-149 Potassium 3.6 3.6-5.5 Chloride 102 mEq/L 94-112 Co2 27 21-32 Calcium (a/CMC/Centrex) 8.6 mg/dL 8.6-10.2 Total Protein 7.5 g/dL 6.3-8.1 Albumin ([facility]CC/Centrex) 4.1 3.8-5.5 Globulin 3.4 2.0-4.8 A/G Ratio (A/G Ratio) 1.2 0.6-2.2 Alkaline Phosphatase (F/C/CTX) 41 U/L 30-110 Alt (SGPT) 19 10-40 Ast (Sgot) (a/CMC/Centrex) 22 U/mL 5-34 Bilirubin, Total 0.5 mg/dL 0.2-1.3 CBC Electronic ([facility]) 08/19/2003 WBC 6.1 CUMM 4.8-10.8 RBC 4.16 CUMM Low 4.2-5.4 Hemoglobin (a/CMC/CTX) 13.2 g/dL 12.0-16.0 Hematocrit (a/CMC/CTX) 39 % 35-47 Mean Corpuscular Vol 93 UM3 79-97 Mean Corpuscular Hemaglobin 32 pg High 27-31 Mean Corpuscular Hemo Concen 34 g/dL 32-36 RDW 12 10.5-15 Platelets 205 CUMM 150-450 Mean Platelet Volume 7.7 7.4-10.4 Granulocytes 53.0 % 38-83 Lymphocytes 37.2 % 20-45 Monocytes 7.3 % 1-9 Eosinophil 2.3 0-6 Basophil% 0.2 0-2 Abs Lymphs 2.3 1.0-4.8 Abs Mononuclear 0.4 0-0.8 Abs Grans 3.3 1.5-7.7 Abs Eosinophils 0.1 0-0.6 Abs Basophils 0 0-0.2 Basic Metabolic ([facility]) 08/19/2003 Sodium 138 mmol/L 135-145 Potassium 3.1 mmol/L Low 3.5-5.0 Chloride 100 mmol/L Low 101-111 Co2 30.0 mmol/L 22-32 Anion Gap 8.0 mmol/L 2-11 Glucose, Serum (Fma/CMC/CTX) 149 mg/dL High 70-105 BUN (Fma/CMC/Centrex) 13 mg/dL 6-24 Creatinine (Fma/CMC/CTX) 0.9 mg/dL 0.5-1.4 BUN/Creatinin Ratio 14.4 8-20 Calcium (Fma/CMC/Centrex) 9.8 mg/dL 8.7-10.2 Ua - Micro ([facility]) 07/23/2003 Appearance CLEAR Color LIGHT YELLOW Glucose, Urine (Fma/CMC/CTX) NEGATIVE Bilirubin NEGATIVE Ketones NEGATIVE SP Grav <=1.005 Blood TRACE PH 7.0 Protein NEGATIVE Urobil 0.2 Nitrite NEGATIVE Leukocytes (Fma/CMC/Centrex) NEGATIVE Hyaline - /Lpf Granular - /Lpf WBC'S 0-1 RBC'S 2-4 Mucus (a/CBC/Centrex) - /Lpf Epith FEW Bacteria - Amorphous (Fma/CMC/Centrex) - /Lpf Crystals, Urine (Fma/CMC/CTX) - /Lpf Comments -- Comp Metabolic ([facility]) 05/07/2003 Glucose, Serum (Fma/CMC/CTX) 91 mg/dL 70- 118 BUN (Fma/CMC/Centrex) 14 mg/dL 6-26 Creatinine (Fma/CMC/CTX) 0.9 mg/dL 0.6-1.4 BUN/Creatinin Ratio 15.7 8.0-36 Sodium 144 134-149 Potassium 4.1 3.6-5.5 Chloride 101 mEq/L 94-112 Co2 28 21-32 Calcium (Fma/CMC/Centrex) 9.9 mg/dL 8.6-10.0 Total Protein 8.1 g/dL 6.3-8.1 Albumin (Fma/CMC/Centrex) 4.1 3.8-5.5 Globulin 4.0 2.0-4.8 A/G Ratio (Fma/CMC) 1.0 0.6-2.2 Alkaline Phosphatase (F/C/CTX) 37 U/L 30-110 Alt (SGPT) (Fma/CMC/Centrex) 18 10-40 Ast (Sgot) (Fma/CMC/Centrex) 21 U/mL 5-34 Bilirubin, Total 0.3 mg/dL 0.2-1.3 Lipid Profile ([facility]) 05/07/2003 Cholesterol ([facility]rex) 252 mg/dL High 120-200 Triglyceride 355 mg/dL High 30-200 HDL-Chol 51 30-85 LDL, Calculated ([facility]) -- CALC 0-129 VLDL 71 High 0-50 HDL Risk Factor ([facility]) 4.9 CALC 4.2-7.0 Laboratory test finding 05/07/2003 LDL, Direct ([facility]) 145 mg/dL High 0- 130 CBC Electronic ([facility]) 05/07/2003 WBC 6.5 3.6-9.6 Lymphocytes 42.2 % 20.5 - 51.1 Monocytes 6.1 % 1.7-9.3 Granulocytes 51.7 % 42.2 - 75.2 Lymphocytes 2.7 10^3/uL 0.7 - 4.9 Monocytes 0.4 10^3/uL 0.1 - 0.9 Granulocytes 3.4 10^3/uL 1.5 - 7.2 RBC 3.86 Low 3.90-5.70 Hemoglobin ([facility]/CTX) 11.9 g/dL Low 12.1 - 17.2 Hematocrit ([facility]/CTX) 36.2 % 36.1 - 50.3 Mean Corpuscular Vol 94.0 82.2-97.4 Mean Corpuscular Hemaglobin 30.8 27.6-33.3 Mean Corpuscular Hemo Concen 32.8 Low 33.0-35.5 RDW 12.6 11.6-13.7 Platelets 235 10^3/ul 150-400 Mean Platelet Volume 8.0 7.4-10.4 CBC Electronic ([facility]) 01/20/2001 WBC 6.1 4.8-10.8 RBC 3.90 Low 4.2-5.4 Hemoglobin 12.6 g/dL 12.0-16.0 Hematocrit 37 % 35-47 Mean Corpuscular Vol 94 79-97 Mean Corpuscular Hemaglobin 32 High 27-31 Mean Corpuscular Hemo Concen 35 32-36 RDW 12 10.5-15 Platelets 229 CUMM 150-450 Mean Platelet Volume 8.0 7.4-10.4 Granulocytes 57.1 % 38-83 Lymphocytes 33.1 % 20-45 Monocytes 7.8 % 1-9 Eosinophil 0.8 0-6 Basophil% 1.2 0-2 Abs Lymphs 2.0 1.0-4.8 Abs Mononuclear 0.5 0-0.8 Abs Grans 3.5 1.5-7.7 Abs Eosinophils 0 0-0.6 Abs Basophils 0.1 0-0.2 1 RESULTS VERIFIED BY REPEAT ANALYSIS 2 RESULTS VERIFIED BY REPEAT ANALYSIS 3 SEE RESULT BELOW Name: GALILEALAURENCE A : [address]: Regan Godinez MD Acct: [id number] Unit: [id number] AGE: 75 Location: ENDO Re04/26/16 SEX: F Status: DEP REF SPEC: [id number] [place]: 04/26/16-1309 [facility] DR: Regan Godinez MD REQ: [id number] RECD: 04/26/16-4106 STATUS: LAWRENCE SPARKS DR: Laurence Levin MD _ ORDERED: LEVEL IV FINAL DIAGNOSIS Colon, cecal cap, biopsy: -- Tubulovillous adenoma. -- No high grade dysplasia or malignancy. CLINICAL HISTORY Usual bowel habit - twice a day to 4x per day POST-OPERATIVE DIAGNOSIS Colonoscopy to cecum - difficult floppy, adult scope. NESP x4 at 11 cm. Conclusions/Plan: Bradycardia, difficult anatomy, cecal polyps GROSS DESCRIPTION The specimen is received in formalin labeled, Cecal Cap Polyp, and consists of three soliman-white irregular to polypoid soft tissue fragments measuring 0.2 x 0.2 x 0.1 cm, 0.5 x 0.4 x 0.2 cm and 1.5 x 0.2 x 0.2 cm, which are entirely submitted in one cassette. Signed (signature on file) Kenna Angeles MD 1025 END OF REPORT * ML=Testing performed at Main Lab DEPARTMENT OF PATHOLOGY, [address] [place] [address] Ryder Ocampo M.D. Director [facility] # [id number] 4 SRC:clean catch 1 chavsi uri ne tube 5 Source of Specimen: clean catch 1 chavis uri 6 Source of Specimen: clean catch 1 chavis uri 7 RESULTS VERIFIED BY REPEAT ANALYSIS 8 RESULTS VERIFIED BY REPEAT ANALYSIS 9 result rechecked 10 FASTING 11 RESULT KANDI'D 12 Vitamin D deficiency has been defined by the [employer] of Medicine and an Endocrine Society practice guideline as a level of serum 25-OH vitamin D less than 20 ng/mL (1,2). The Endocrine Society went on to further define vitamin D insufficiency as a level between 21 and 29 ng/mL (2). 1. IOM ([employer] of Medicine). 2010. Dietary reference intakes for calcium and D. [place]: The National Academies Press. 2. [place] MF, Aubree NC, Subha DREW, et al. Evaluation, treatment, and prevention of vitamin D deficiency: an Endocrine Society clinical practice guideline. JCEM. 2010; 96(7):1911-30. 13 RESULT KANDI'D 14 RESULT KANDI'D 15 Recent studies consider the lower limit of 32.0 ng/mL to be a threshold for optimal health. Vasquez BW. J Nutr. 2004;135(2):317-22. 16 RESULT KANDI'D 17 Recent studies consider the lower limit of 32.0 ng/mL to be a threshold for optimal health. Vasquez BW. J Nutr. 2004;135(2):317-22. 18 Recent studies consider the lower limit of 32.0 ng/mL to be a threshold for optimal health. Vasquez BW. J Nutr. 2004b;135(2):317-22. 19 FASTING 20 RESULT KANDI'D 21 PLEASE NOTE NEW REFERENCE RANGES. 22 Anion gap measurement may be of limited value in the presence of any alkalosis, especially in a combined acid base disorder. . 23 Classification: Borderline High . 24 CALCULATED LDL APPROXIMATES THE VALUE OF A DIRECT LDL MEASUREMENT. Classification: Near or above optimal . Procedures Date CPT Code Description Status Comment 04/26/2016 Colonoscopy Completed 03/07/2016 Mammogram Completed 01/23/2015 65238 Dxa Bone Density Study One Or Completed More Sites Axial Skeleton 01/23/2015 Mammogram Completed 01/23/2015 Bone Mineral Density Test Completed Document: 01/23/15 - Dexa Report 11/27/2012 Mammogram Completed 11/20/2012 83206 Electrocardiogram Complete Completed 06/16/2011 Mammogram Completed 01/25/2010 Mammogram Completed 01/21/2009 Mammogram Completed 01/11/2008 Mammogram Completed 01/23/2007 39708 Electrocardiogram Complete Completed 01/05/2007 Mammogram Completed 12/26/2005 Mammogram Completed 12/10/2003 45454 Pure Tone Hearing Test, Air Completed Encounters Type Date Location Provider CPT E/M Dx Office Visit 10/18/2017 9:45a [facility] JENNIFER Cruz 46934 R05 I10 Office Visit 09/08/2017 9:00a [facility] Laurence Levin M.D. 34368 Z00.01 I10 E78.4 M41.24 E55.9 R05 Office Visit 06/11/2016 12:20p [facility] Office Avila Webb M.D. 92229 S70.262A W57.xxxA Office Visit 02/23/2016 2:40p [facility] Laurence Levin M.D. 95182 R05 R10.32 Office Visit 01/19/2016 2:00p [facility] Laurence Levin M.D. 43578 Z00.00 Z12.31 N39.0 I10 E78.4 E55.9 K30 R10.2 Office Visit 08/05/2015 11:00a Main Office Laurence Levin M.D. 57586 R29.6 I10 R35.0 R10.84 Office Visit 07/16/2015 1:15p Main Office Bryanna YbarraVIDA 65372 R29.6 I10 R35.0 Office Visit 03/10/2015 2:45p Main Office Mindy ALEXANDRA PhamP 44114 J06.9 Office Visit 12/26/2014 1:00p Main Office Laurence Levin M.D. 96154 Z00.01 I10 E78.4 M85.89 M54.31 K30 M40.04 Z23 Office Visit 04/26/2013 3:15p Main Office Mindy PhamALEXANDRAP 05224 959.01 E917.4 Office Visit 12/11/2012 1:00p Main Office Sahara MarcialAlma-C 92921 401.9 782.1 372.30 Office Visit 11/20/2012 9:00a Main Office Laurence Levin M.D. 57016 V70.0 401.9 272.4 719.47 733.90 427.89 V04.81 Office Visit 09/28/2012 11:15a [facility] Sahara MarcialAlma-C 84130 959.3 E917.8 Office Visit 05/10/2012 3:40p Main Office Jermaine Handley M.D. 44754 461.0 477.9 Office Visit 05/11/2011 11:20a Main Office Joyce Griffith M.D. 06604 719.42 401.9 272.4 535.00 733.09 268.9 Office Visit 05/05/2010 1:00p Main Office Joyce Griffith M.D. 40154 388.30 723.1 535.00 733.09 401.9 272.4 268.9 Office Visit 05/05/2009 12:00p Main Office Joyce Griffith M.D. 59881 386.11 401.9 Office Visit 02/10/2009 9:40a Main Office Joyce Griffith M.D. 50439 401.9 272.4 733.90 530.81 V05.8 Office Visit 03/21/2008 10:40a Main Office Joyce Griffith M.D. 73248 461.8 Office Visit 08/14/2007 7:20p Main Office Jay Smart M.D. 96475 V03.82 401.9 272.4 733.90 Office Visit 01/23/2007 6:40p Main Office Jay Smart M.D. 20722 272.4 401.9 724.5 V76.41 V72.83 Office Visit 12/25/2006 6:00p Main Office JENNIFER Bennett 05650 401.9 Office Visit 11/29/2006 7:00p Main Office Louise Whitten Afnp-C 82521 401.9 272.4 477.9 V04.81 Office Visit 11/09/2005 6:15p Main Office Louise Whitten Afnp-C 60316 724.79 Office Visit 05/26/2005 7:30p Main Office Maria Guadalupe Kirby BACON STRINGER-C 28525 V70.3 Office Visit 07/26/2004 7:30p Main Office Louise Whitten Afnp-C 64876 401.9 272.4 477.9 734 Office Visit 01/24/2004 10:45a Main Office Maria Guadalupe Kirby [employer] 65882 461.9 Office Visit 12/10/2003 7:00p Main Office Louise Whitten Afnp-C 44660 401.9 272.4 V72.1 Office Visit 09/17/2003 8:00p Main Office Louise Whitten Afnp-C 18963 401.9 276.8 386.11 Office Visit 07/23/2003 7:00p Main Office Louise Whitten Afnp-C 38334 401.9 599.7 Office Visit 05/07/2003 6:30p Main Office Anastasia Bustillos 16921 401.9 627.2 V70.3 V74.1 272.0 Office Visit 02/15/2003 9:30a Main Office Alma Bustillos-Jenny 62728 473.9 401.9 Office Visit 10/10/2002 6:30p Main Office Maria Guadalupe Pop Kofi [employer] 60592 490 Office Visit 08/23/2002 1:45p Main Office Maria Guadalupe Kirby [employer]Jenny 98384 401.9 Office Visit 12/01/2001 11:45a Main Office Alma Bustillos-Jenny 62016 461.0 V04.8 Office Visit 01/03/2001 6:15p Main Office Louise Whitten Al[place]-Jenny 53887 Office Visit 05/03/2000 6:15p Main Office Louise Whitten [place] 10226 Office Visit 04/05/2000 6:30p Main Office Louise Whitten [place]enny [id number] Plan of Care 11/15/2017 - Kenna Sweeney, [id number] Abdominal distension (gaseous) AllComments:~B_~U_Medication Management~b_~u_ Patient Understands medications he 's taking? Yes No Are there Barriers to Adherence? Yes No Has the patient been asked about herbal supplements and therapies, and OTC meds? Yes No As always, we strongly encourage a healthy diet and makingphysical activity a part of your every day life. If you have questions about how or where to start, please contact the office.
[2017-12-01 19:41] LABS: ABS Basophils 0 10^3/ul (0-0.2); ABS Eosinophils 0 10^3/ul (0-0.6); ABS Lymphocytes 1.2 10^3/ul (1.0-4.8); ABS Monocytes 1.2 10^3/ul (0-0.8); ABS Neutrophils 10.3 10^3/ul (1.5-7.7); ABS Nucleated RBC 0 10^3/ul; Eosinophil % 0.2 % (0-6); Hematocrit 36 % (35-47); Hemoglobin 12.2 g/dl (12.0-16.0); Lymphocyte % 9.2 % (25-47); Mean Corpuscular HGB Conc 34 g/dl (31-36); Mean Corpuscular Hemoglobin 31 pg (27-31); Mean Corpuscular Volume 91 fL (80-97); Mean Platelet Volume 8.4 um3 (7.4-10.4); Nucleated Red Blood Cells % 0.1; Platelet Count 279 10^3/ul (150-450); Red Blood Count 3.95 10^6/ul (4.00-5.40); Red Cell Distribution Width 14 % (10.5-15); White Blood Count 12.7 10^3/ul (3.5-10.8)
--- NOTE | 2017-12-01 20:11 | ED ---
Nausea/Vomiting/Diarrhea HPI - HPI Summary HPI Summary: This is a 77-year-old woman who presents to the emergency department this evening complaining of diarrhea. She states it began approximately 8 days ago with frequent watery bowel movements throughout the day. It went on for several days and she took some Imodium, at which point the diarrhea stopped, indeed she became somewhat constipated for a couple of days. She has had recurrence of the diarrhea over the past 2 days, going to the bathroom perhaps once an hour. There has been no hematochezia, no nausea or vomiting. She has had some intermittent, stabbing pain from the umbilicus to the bladder, but this has come and gone fairly quickly. She has no past abdominal surgical history, nor any history of colitis, ulcers, or other significant gastrointestinal problems. She has had screening colonoscopy, most recently perhaps a year ago, at which point they found polyps. One of these was removed and the patient is supposed to go back for a follow-up in the next year or so. There is no recent travel history, nor any history of ingestion of possible tainted food. No one else at home has been ill. - History of Current Complaint Chief Complaint: EDNauseaVomitDiarrh Stated Complaint: DIARRHEA/ABD PAIN Time Seen by Provider: 12/01/17 20:11 Pain Intensity: 0 - Allergies/Home Medications Allergies/Adverse Reactions: Allergies Allergy/AdvReac Type Severity Reaction Status Date / Time ampicillin Allergy Dizziness Verified 12/01/17 18:49 PMH/Surg Hx/FS Hx/Imm Hx Previously Healthy: Yes Endocrine/Hematology History: Denies: Hx Diabetes Cardiovascular History: Reports: Hx Hypertension - ON MEDS Denies: Hx Pacemaker/ICD History: Denies: Hx Dialysis, Hx Renal Disease Sensory History: Denies: Hx Hearing Aid Psychiatric History: Denies: Hx Panic Disorder - Cancer History Hx Chemotherapy: No Hx Radiation Therapy: No - Surgical History Surgery Procedure, Year, and Place: hysterectomy 08/12/75. RETROCELE 2003. BILATERAL CATARACTS 02/2007 Infectious Disease History: No Infectious Disease History: Denies: Traveled Outside the [place] in Last 30 Days - Social History Hx Tobacco Use: No Review of Systems Positive: Chills - she did have some chills last week at the onset of this illness, none since. Negative: Fever Negative: Epistaxis, Sore Throat Negative: Palpitations Negative: Shortness Of Breath Positive: Diarrhea. Negative: Abdominal Pain, Vomiting, Nausea All Other Systems Reviewed And Are Negative: Yes Physical Exam - Summary Physical Exam Summary: General: This is a well-developed, well- nourished elderly woman lying on the stretcher in no apparent distress. The patient does not appear ill or toxic. HEENT:Extraocular movements are intact. Conjunctiva are normal without pallor. Pharynx is clear without exudate or swelling. Dentition is unremarkable. There is no sign of head trauma. Neck: Supple, no adenopathy noted. Lungs: Lungs are clear to auscultation. There are no signs of respiratory distress. Coronary: Peripheral perfusion is good. Heart sounds are regular, a normal S1 and S2 were auscultated. There is no gallop rhythm, nor any pathological sounded murmurs. Abdomen: The abdomen appears normal and is nondistended. Normoactive bowel sounds are present. On palpation, there is no significant tenderness, nor any guarding or rebound. There is no hepatosplenomegaly, nor any masses. Genitourinary: Deferred Back: Good range of motion is observed. There are no surface abnormalities nor any scoliosis. Extremities: Good range of motion was observed in all 4 extremities. There is no sign of any trauma to the extremities. Neurologic: The patient is awake and alert, speech is fluent in conversation is appropriate. There are no focal motor abnormalities. Cranial nerves are grossly intact. Deep tendon reflexes are 2+ and symmetric. There is no ataxia observed. Psychiatric. The patients affect is felt to be normal and appropriate. There is no sign of any hallucinations or delusions, or any other signs of psychosis. Vital Signs On Initial Exam: Initial Vitals Temp Pulse Resp BP Pulse Ox 37.6 C 91 16 93/62 95 12/01/17 18:38 12/01/17 18:38 12/01/17 18:38 12/01/17 18:38 12/01/17 18:38 Diagnostics - Vital Signs Vital Signs Temp Pulse Resp BP Pulse Ox 12/01/17 18:38 37.6 C 91 16 93/62 95 - Laboratory Lab Results: Lab Results 12/01/17 Range/Units 19:35 WBC 12.7 H (3.5-10.8) 10^3/ul RBC 3.95 L (4.00-5.40) 10^6/ul Hgb 12.2 (12.0-16.0) g/dl Hct 36 (35-47) % MCV 91 (80-97) fL MCH 31 (27-31) pg MCHC 34 (31-36) g/dl RDW 14 (10.5-15) % Plt Count 279 (150-450) 10^3/ul MPV 8.4 (7.4-10.4) um3 Neut % (Auto) 80.7 (38-83) % Lymph % (Auto) 9.2 L (25-47) % Mcdonald % (Auto) 9.7 H (0-7) % Eos % (Auto) 0.2 (0-6) % Baso % (Auto) 0.2 (0-2) % Absolute Neuts (auto) 10.3 H (1.5-7.7) 10^3/ul Absolute Lymphs (auto) 1.2 (1.0-4.8) 10^3/ul Absolute Monos (auto) 1.2 H (0-0.8) 10^3/ul Absolute Eos (auto) 0 (0-0.6) 10^3/ul Absolute Basos (auto) 0 (0-0.2) 10^3/ul Absolute Nucleated RBC 0 10^3/ul Nucleated RBC % 0.1 Result Diagrams: 12/01/17 19:35 12/01/17 19:35 Lab Statement: Any lab studies that have been ordered have been reviewed, and results considered in the medical decision making process. Naus/Vom/Diarrhea Course/Dx - Differential Dx/Diagnosis Provider Diagnoses: Diarrhea Condition At Discharge: Good Discharge - Sign-Out/Discharge Documenting (check all that apply): Patient Departure - Discharge Plan Condition: Good Disposition: HOME Patient Education Materials: Acute Diarrhea (ED) Referrals: Laurence Levin MD [Primary Care Provider] - Additional Instructions: Your blood work tonight looks ok, there are no signs of significant dehydration. The stool tests will take a few days to come back. You can use OTC immodium to help manage the symptoms, just be careful not to take too much as it can constipate you if you take too much. - Billing Disposition and Condition Condition: GOOD Disposition: Home - Attestation Statements Document Initiated by Scribe: No
[2017-12-01 20:13] LABS: EGFR Non-African American 63.5 (>60)
[2017-12-01 22:39] VITALS: BP 116/73
== END 2017-12-01 22:39 | disposition home or self-care (01) ==
LOC: ED 18:37
DX: R19.7 Diarrhea, unspecified (principal); I10 Essential (primary) hypertension; Z88.0 Allergy status to penicillin
CPT/HCPCS: 36415; 80053; 85025; 99282

== ENCOUNTER 2017-12-05 05:05 | Emergency (ER) | payer MEDICARE ==
[2017-12-05] MEDS ORDERED: NS 0.9% 1000 ML* 2,000 ML IV ONE (05:15)
--- NOTE | 2017-12-05 05:55 | ED ---
Nausea/Vomiting/Diarrhea HPI - HPI Summary HPI Summary: Patient is a 77-year-old female who presents emergency department for ongoing diarrhea 2 weeks. Patient was seen in the ER several days ago for similar symptoms. She states diarrhea has slowly improved with taking Imodium. She is unsure how many bowel movements she is having today is a very frequent. She states that stool was slightly formed a mustard yellow color. She notes that she started having bleeding from her rectum yesterday. Patient complains of generalized malaise and weakness denies fever, chills, vomiting, chest pain, shortness of breath. She denies history of ulcerative colitis, Crohn's disease , IBS. She admits to lower abdominal pain and describes it as sharp and cramping in nature. She denies recent hospitalization, antibiotic use, recent travels, new exposures, sick contacts. Symptoms are moderate in severity. No current modifying factors. Last colonoscopy was about a year ago. Is not anticoagulated. - History of Current Complaint Chief Complaint: EDRectalPain Stated Complaint: RECTAL BLEEDING Time Seen by Provider: 12/05/17 05:42 Hx Obtained From: Patient, Family/Door Patcher Pain Intensity: 6 - Allergies/Home Medications Allergies/Adverse Reactions: Allergies Allergy/AdvReac Type Severity Reaction Status Date / Time ampicillin Allergy Dizziness Verified 12/05/17 05:28 PMH/Surg Hx/FS Hx/Imm Hx Previously Healthy: Yes Endocrine/Hematology History: Denies: Hx Diabetes Cardiovascular History: Reports: Hx Hypertension - ON MEDS Denies: Hx Pacemaker/ICD History: Denies: Hx Dialysis, Hx Renal Disease Sensory History: Denies: Hx Hearing Aid Psychiatric History: Denies: Hx Panic Disorder - Cancer History Hx Chemotherapy: No Hx Radiation Therapy: No - Surgical History Surgery Procedure, Year, and Place: hysterectomy 08/12/75. RETROCELE 2003. BILATERAL CATARACTS 02/2007 - Immunization History Date of Tetanus Vaccine: utd Date of Influenza Vaccine: fall 2017 Infectious Disease History: No Infectious Disease History: Denies: Traveled Outside the [place] in Last 30 Days - Social History Occupation: Retired Lives: Alone Alcohol Use: None Substance Use Type: Reports: None Hx Tobacco Use: No Smoking Status (MU): Never Smoked Tobacco Review of Systems Constitutional: Negative Negative: Fever, Chills Cardiovascular: Negative Negative: Chest Pain Respiratory: Negative Negative: Shortness Of Breath Positive: Abdominal Pain, Diarrhea, Nausea. Negative: Vomiting Genitourinary: Negative Musculoskeletal: Negative Neurological: Negative All Other Systems Reviewed And Are Negative: Yes Physical Exam Triage Information Reviewed: Yes Vital Signs On Initial Exam: Initial Vitals Temp Pulse Resp BP Pulse Ox 98.8 F 88 16 103/81 97 12/05/17 05:06 12/05/17 05:06 12/05/17 05:06 12/05/17 05:06 12/05/17 05:06 Vital Signs Reviewed: Yes Appearance: Positive: Well-Appearing - Pt. sitting up in bed in NAD. Familiy member present. Skin: Positive: Warm, Dry Head/Face: Positive: Normal Head/Face Inspection Eyes: Positive: Normal, EOMI, Conjunctiva Clear ENT: Positive: Other - Oral mucosa dry and lips are chapped. Neck: Positive: Supple Respiratory/Lung Sounds: Positive: Clear to Auscultation, Breath Sounds Present Cardiovascular: Positive: Normal, RRR Abdomen Description: Positive: Other: - Abd. is soft with diffuse lower abd. tenderness on palpation. No rebound tenderness or guarding. Rectal exam performed with nurse. No gross bleeding. Brown formed stool in rectal vault. Bowel Sounds: Positive: Present Neurological: Positive: Normal, CN Intact II-III Psychiatric: Positive: Affect/Mood Appropriate Diagnostics - Vital Signs Vital Signs Temp Pulse Resp BP Pulse Ox 12/05/17 05:06 98.8 F 88 16 103/81 97 - Laboratory Result Diagrams: 12/05/17 05:24 12/05/17 05:24 Lab Statement: Any lab studies that have been ordered have been reviewed, and results considered in the medical decision making process. Naus/Vom/Diarrhea Course/Dx - Course Course Of Treatment: Pt. presenting for ongoing diarrhea x 2 weeks. Pt. is afebrile. BP mildly low at 103/81. Will obtain labs and CT scan for further evaluation. Stool cultures ordered. Pt. started on IV fluids. CBC shows stable H and H of 11.3 and 33 which is mildly decreased from 4 days ago t 12.2 and 36. CMP shows low Na, K and Cl at 130, 3.2, and 92. Stool positive for blood. Elevated CRP. CT scan shows probably colitis and a large amount of stool in rectum, reading per radiology. Results discussed with Dr. Lowe who recommends treating with cipro and flagyl for colitis. Pt. unable to give stool sample in ED. Results discussed with pt. and family. Recommend stopping lomotil. Pt.s daughter request to give pt. medication in ED for constipation. She states she has a hx of bowel prolapse and is concerned that could happen again. Pt. was given a fleets enema and had a BM. PT. and familyi comfortable being dc home. To call PCP today for a close f.u apt. and return to eR if sxs change or worsen. - Differential Dx/Diagnosis Differential Diagnoses - Female: Bowel Obstruction, Constipation, Diverticulitis , Hemorrhoids Provider Diagnoses: 1. Constipation 2. Colitis Condition At Discharge: Good Discharge - Sign-Out/Discharge Documenting (check all that apply): Patient Departure - Discharge Plan Condition: Good Disposition: HOME Prescriptions: Ciprofloxacin TAB* [Cipro 500 MG TAB*] 500 mg PO BID #20 tab metroNIDAZOLE [Flagyl 500 MG TAB] 500 mg PO TID 30 Days #1 tab Patient Education Materials: Fecal Impaction (ED), Colitis (ED) Referrals: Laurence Levin MD [Primary Care Provider] - Additional Instructions: Schedule a follow up appointment with your PCP Take medication as directed Increase fluids Stop using Pepto-Bismol and Imodium Return to ER if symptoms change or worsen - Billing Disposition and Condition Condition: GOOD Disposition: Home
[2017-12-05 06:30] LABS: INR 0.98 (0.77-1.02)
[2017-12-05 06:36] LABS: ABS Basophils 0 10^3/ul (0-0.2); ABS Eosinophils 0.1 10^3/ul (0-0.6); ABS Lymphocytes 0.9 10^3/ul (1.0-4.8); ABS Monocytes 1.4 10^3/ul (0-0.8); ABS Neutrophils 6.7 10^3/ul (1.5-7.7); ABS Nucleated RBC 0 10^3/ul; Eosinophil % 0.7 % (0-6); Hematocrit 33 % (35-47); Hemoglobin 11.3 g/dl (12.0-16.0); Lymphocyte % 9.5 % (25-47); Mean Corpuscular HGB Conc 34 g/dl (31-36); Mean Corpuscular Hemoglobin 31 pg (27-31); Mean Corpuscular Volume 90 fL (80-97); Mean Platelet Volume 9.2 um3 (7.4-10.4); Nucleated Red Blood Cells % 0; Platelet Count 238 10^3/ul (150-450); Red Blood Count 3.68 10^6/ul (4.00-5.40); Red Cell Distribution Width 14 % (10.5-15); White Blood Count 9.1 10^3/ul (3.5-10.8)
[2017-12-05 06:43] LABS: EGFR Non-African American 64.3 (>60)
[2017-12-05] MEDS ORDERED: Iohexol 300* (CONTRAST) 10 ML SDV IV ONE ×2 (06:51→09:58)
--- NOTE | 2017-12-05 10:21 | RAD ---
CLINICAL HISTORY: bloody diarrhea,?colitis COMPARISON: March 07, 2016 TECHNIQUE: Multiple contiguous axial CT scans were obtained of the abdomen and pelvis after the administration of intravenous contrast. Coronal and sagittal multiplanar reformations are submitted for review. Oral contrast was administered. Delayed images were obtained through the abdomen. FINDINGS: LUNG BASES: The lung bases are clear. LIVER: The liver is normal in shape, size, contour, and attenuation. BILE DUCTS: There is minimal intrahepatic biliary dilatation. The common duct is mildly ectatic up to 0.8 cm in caliber. This extends to the level of the ampulla. GALLBLADDER: The gallbladder is normal, without pericholecystic inflammatory change. PANCREAS: The pancreas is normal, without mass or ductal dilatation. SPLEEN: Normal in size and appearance. UPPER GI TRACT: Evaluation of the gastrointestinal tract is limited by incomplete gastric distention. There is a small sliding hiatal hernia. SMALL BOWEL AND MESENTERY: The small bowel is normal in contour, course, and caliber. There is no obstruction or dilatation. COLON: There is large amount of stool throughout the colon, with a large stool ball in the rectum. There is mild stranding of the perirectal fat. ADRENALS: Normal bilaterally. KIDNEYS: There are extrarenal pelvises bilaterally. There is no appreciable renal cortical parenchymal mass. There is no hydronephrosis or nephrolithiasis. BLADDER: The bladder is smooth in contour. PELVIC ORGANS: The pelvic organs are not visualized. AORTA: There is calcific atherosclerotic disease of the abdominal aorta and its branches, without aneurysmal dilatation IVC: Unremarkable LYMPH NODES: There is no lymphadenopathy by size criteria. ABDOMINAL WALL: There is a fat-containing left internal hernia. BONES AND SOFT TISSUES: There is a scoliotic curvature of the spine. Degenerative changes are noted. OTHER: None IMPRESSION: 1. LARGE AMOUNT OF STOOL THROUGHOUT THE COLON, WITH A LARGE STOOL BALL IN THE RECTUM. 2. THERE IS MILD PERIRECTAL INFLAMMATORY CHANGES MAY REFLECT A DISTAL COLITIS. 3. ATHEROSCLEROSIS. 4. MILD BILIARY DILATATION EXTENDING TO THE LEVEL OF THE AMPULLA.
[2017-12-05] MEDS ORDERED: Potassium Chlor TAB* 20 MEQ TAB.ER PO ONE (10:26)
[2017-12-05] MEDS ORDERED: Sodium Phosphate ADULT ENEMA* 118 ml bottle PR ONE (11:22)
[2017-12-05 14:00] VITALS: BP 0/0
== END 2017-12-05 13:58 | disposition home or self-care (01) ==
LOC: ED 05:05
DX: R19.7 Diarrhea, unspecified (principal); I10 Essential (primary) hypertension
CPT/HCPCS: 36415; 74177; 80053; 82272; 83605; 83735; 85025; 85610; 86140; 86850; 86900; 86901; 96361; 96374; 99283; A9270-GY; Q9967

== ENCOUNTER 2018-10-25 09:52 | Emergency (ER) | payer MEDICARE ==
[2018-10-25 11:09] LABS: Urine Appearance Cloudy; Urine Bacteria 1+ (Absent); Urine Bilirubin Negative (Negative); Urine Blood 3+ (Negative); Urine Color Yellow; Urine Glucose Negative (Negative); Urine Ketones Negative (Negative); Urine Nitrite Negative (Negative); Urine Protein Negative (Negative); Urine Red Blood Cell 3+(>10/hpf) (Absent); Urine Specific Gravity 1.003 (1.010-1.030); Urine Urobilinogen Negative (Negative); Urine White Blood Cell Trace(0-5/hpf) (Absent)
--- NOTE | 2018-10-25 11:24 | ED ---
GI/ HPI - HPI Summary HPI Summary: Patient is a 78 y/o F presenting to [facility] with complaints of hematuria. Patient states that she had a second episode occur while in ED. She endorses chills as well but denies dysuria. She does not make note of any prior similar episodes. PMHx of HTN and HLD is reported. She denies recent surgeries and states that she is not on blood thinners. On triage, pain is denied, nothing is noted to aggravate/alleviate Sx. Home medications and allergies are reviewed. - History of Current Complaint Chief Complaint: EDUrogenitalProblems Time Seen by Provider: 10/25/18 10:56 Stated Complaint: BLOOD IN URINE PER PT Hx Obtained From: Patient Onset/Duration: Started Hours Ago Timing: Lasting Hours Current Severity: None Pain Intensity: 0 Associated Signs and Symptoms: Positive: Hematuria, Chills. Negative: Dysuria Aggravating Factor(s): Nothing Alleviating Factor(s): Nothing - Allergy/Home Medications Allergies/Adverse Reactions: Allergies Allergy/AdvReac Type Severity Reaction Status Date / Time ampicillin Allergy Dizziness Verified 10/25/18 09:54 Home Medications: Home Medications Calcium Carbonate CHEW TAB* [Tums*] 1,000 mg PO DAILY 10/25/18 [History Confirmed 10/25/18] Calcium Carbonate [Calcium] 1,000 mg PO DAILY 10/25/18 [History Confirmed ] Fluticasone NASAL SPRAY 50MCG* [Flonase NASAL SPRAY 50MCG*] 2 spray BOTH NARES DAILY 10/25/18 [History Confirmed 10/25/18] L.acidoph,Paracasei, B.lactis [Probiotic] 1 each PO DAILY 10/25/18 [History Confirmed 10/25/18] Tetrahydrozoline HCl [Eye Drops] 1 drop BOTH EYES DAILY PRN 10/25/18 [History Confirmed 10/25/18] Vit A/Vit C/Vit E/Zinc/Copper [Preservision Areds Softgel] 1 each PO BID [History Confirmed 10/25/18] PMH/Surg Hx/FS Hx/Imm Hx Endocrine/Hematology History: Denies: Hx Diabetes Cardiovascular History: Reports: Hx Hypercholesterolemia, Hx Hypertension - ON MEDS Denies: Hx Pacemaker/ICD History: Denies: Hx Dialysis, Hx Renal Disease Sensory History: Denies: Hx Hearing Aid Psychiatric History: Denies: Hx Panic Disorder - Cancer History Hx Chemotherapy: No Hx Radiation Therapy: No - Surgical History Surgery Procedure, Year, and Place: hysterectomy 08/12/75. RETROCELE 2003. BILATERAL CATARACTS 02/2007 - Immunization History Date of Tetanus Vaccine: utd Date of Influenza Vaccine: fall 2017 Infectious Disease History: No Infectious Disease History: Denies: Traveled Outside the [place] in Last 30 Days - Family History Known Family History: Positive: Hypertension - Social History Alcohol Use: None Substance Use Type: Reports: None Hx Tobacco Use: No Smoking Status (MU): Never Smoked Tobacco Review of Systems Positive: Chills Positive: hematuria. Negative: dysuria All Other Systems Reviewed And Are Negative: Yes Physical Exam - Summary Physical Exam Summary: VITAL SIGNS: Reviewed. GENERAL: Patient is a well-developed and nourished female who is lying comfortable in the stretcher. Patient is not in any acute respiratory distress. HEAD AND FACE: No signs of trauma. No ecchymosis, hematomas or skull depressions. No sinus tenderness. EYES: PERRLA, EOMI x 2, No injected conjunctiva, no nystagmus. EARS: Hearing grossly intact. Ear canals and tympanic membranes are within normal limits. MOUTH: Oropharynx within normal limits. NECK: Supple, trachea is midline, no adenopathy, no JVD, no carotid bruit, no c- spine tenderness, neck with full ROM. CHEST: Symmetric, no tenderness at palpation. LUNGS: Clear to auscultation bilaterally. No wheezing or crackles. CVS: Regular rate and rhythm, S1 and S2 present, no murmurs or gallops appreciated. ABDOMEN: Soft, non-tender. No signs of distention. No rebound, no guarding, and no masses palpated. Bowel sounds are normal. EXTREMITIES: FROM in all major joints, no edema, no cyanosis or clubbing. NEURO: Alert and oriented x 3. No acute neurological deficits. Speech is normal and follows commands. SKIN: Dry and warm. Triage Information Reviewed: Yes Vital Signs On Initial Exam: Initial Vitals Temp Pulse Resp BP Pulse Ox 98.8 F 59 16 179/82 100 10/25/18 09:54 10/25/18 09:54 10/25/18 09:54 10/25/18 09:54 10/25/18 09:54 Vital Signs Reviewed: Yes Diagnostics - Vital Signs Vital Signs Temp Pulse Resp BP Pulse Ox 10/25/18 09:54 98.8 F 59 16 179/82 100 - Laboratory Lab Results: Lab Results 10/25/18 Range/Units 10:30 Urine Color Yellow Urine Appearance Cloudy Urine pH 8.0 (5-9) Ur Specific Bonham 1.003 L (1.010-1.030) Urine Protein Negative (Negative) Urine Ketones Negative (Negative) Urine Blood 3+ A (Negative) Urine Nitrate Negative (Negative) Urine Bilirubin Negative (Negative) Urine Urobilinogen Negative (Negative) Ur Leukocyte Esterase Negative (Negative) Urine WBC (Auto) Trace(0-5/hpf) (Absent) Urine RBC (Auto) 3+(>10/hpf) A (Absent) Urine Bacteria 1+ A (Absent) Urine Glucose Negative (Negative) Result Diagrams: 10/25/18 13:03 10/25/18 13:03 Lab Statement: Any lab studies that have been ordered have been reviewed, and results considered in the medical decision making process. - Radiology CXR Radiology Interpretation Completed By: Radiologist Summary of Radiographic Findings: IMPRESSION: No active cardiopulmonary disease is noted. THIS REPORT WAS REVIEWED BY DR. LOVETT. - CT UROGRAM CT CT Interpretation Completed By: Radiologist Summary of CT Findings: IMPRESSION: No hydronephrosis of either kidney. No renal masses are noted. Lobulated dominant mass in the right floor of the urinary bladder measuring at least 4.2. cm although other nodules are noted in the dome of the bladder, right and left wall of the. urinary bladder. Findings are consistent with bladder carcinoma. Small nodule in the left adrenal apex. THIS REPORT WAS REVIEWED BY DR. LOVETT. - EKG 1621 Cardiac Rate: Bradycardia - rate of 57 BPM EKG Rhythm: Sinus Bradycardia Ectopy: PVCs Summary of EKG Findings: EKG showed sinus bradycardia with rate of 57 BPM, no ST elevation, P wave inversions in leads two and three, occasional PVCs. Re-Evaluation - Re-Evaluation First Eval Re-Evaluation Time: 17:15 Comment: I discussed my findings test results and plan with the patient and they agree with plan. GIGU Course/Dx - Course Assessment/Plan: Patient is a 78 y/o F presenting to [facility] with complaints of hematuria. Patient states that she had a second episode occur while in ED. She endorses chills as well but denies dysuria. She does not make note of any prior similar episodes. PMHx of HTN and HLD is reported. She denies recent surgeries and states that she is not on blood thinners. Blood test results without any significant abnormality except for carbon dioxide of 33, BUNs 34, creatinine 1.1 , calcium is 10.4, urinalysis is negative for UTI. Specific gravity is 1.003, 2 + blood and 1+ bacteria. The ED course the patient was given IV fluids. She did not require any pain medications since the patient is asymptomatic. I discussed the case with Dr. Mendes from urology and he recommends to get CT urogram. CT urogram impression: No hydronephrosis of either kidney. No renal mass are noted. Loculated dominant mass in the right floor of the urinary bladder measuring at least 4.2 cm although or nodules are noted in the dome of the bladder. Right and left wall of the urinary bladder. Findings are consistent with bladder carcinoma. The small nodule in the left adrenal apex. At this time I discussed my physical exam and findings with Dr. Mendes from urology and he recommends for the patient to get a chest x-ray and an EKG and the patient can be discharged home with follow-up at his office tomorrow morning at 8:30 AM. I discussed my findings test results and plan with the patient and they agree. Therefore the patient will be discharged home with follow-up with Dr. Mendes. - Diagnoses Provider Diagnoses: Painless hematuria, Mass of urinary bladder - Physician Notifications Discussed Care Of Patient With: Ulises Mendes Time Discussed With Above Provider: 13:53 Instructed by Provider To: Other - 1353 - Patient's case was discussed with Dr. Mendes, Dr. Mendes recommends CT urogram. 1607 - Results of CT urogram was discussed with Dr. Mendes, Dr. Mendes recommends CXR, EKG, and discharge to home with follow up in his office tomorrow. Discharge ED - Sign-Out/Discharge Documenting (check all that apply): Patient Departure - discharge Patient Received Moderate/Deep Sedation with Procedure: No - Discharge Plan Condition: Stable Disposition: HOME Patient Education Materials: Hematuria (ED) Referrals: Ulises Mendes MD [Medical Doctor] - 1 Day Laurence Levin MD [Primary Care Provider] - 3 Days Additional Instructions: PLEASE RETURN TO THE EMERGENCY DEPARTMENT FOR ANY NEW OR WORSENING SYMPTOMS. PLEASE FOLLOW UP WITH DR. MENDES TOMORROW AND WITH YOUR PRIMARY CARE PHYSICIAN WITHIN THREE DAYS. - Billing Disposition and Condition Condition: STABLE Disposition: Home - Attestation Statements Document Initiated by Omar: Yes Documenting Scribe: DARLIN MCKEON Provider For Whom Omar is Documenting (Include Credential): TOMMY LOVETT MD Scribe Attestation: DARLIN Castillo, scribed for TOMMY LOVETT MD on 10/26/18 at 0844. Scribe Documentation Reviewed: Yes Provider Attestation: The documentation as recorded by the DARLIN varela accurately reflects the service I personally performed and the decisions made by me, TOMMY LOVETT MD Status of Scribe Document: Viewed
[2018-10-25 13:20] LABS: ABS Basophils 0.1 10^3/ul (0-0.2); ABS Eosinophils 0.1 10^3/ul (0-0.6); ABS Lymphocytes 1.7 10^3/ul (1.0-4.8); ABS Monocytes 0.4 10^3/ul (0-0.8); ABS Neutrophils 2.5 10^3/ul (1.5-7.7); Eosinophil % 1.5 %; Hematocrit 36 % (35-47); Hemoglobin 12.1 g/dL (12.0-16.0); Lymphocyte % 35.1 %; Mean Corpuscular HGB Conc 34 g/dL (31-36); Mean Corpuscular Hemoglobin 31 pg (27-31); Mean Corpuscular Volume 92 fL (80-97); Mean Platelet Volume 8.5 fL (7.4-10.4); Platelet Count 246 10^3/uL (150-450); Red Blood Count 3.95 10^6 /uL (3.70-4.87); Red Cell Distribution Width 15 % (10-15); White Blood Count 4.8 10^3/uL (3.5-10.8)
[2018-10-25 13:34] LABS: Albumin 4.2 g/dL (3.2-5.2); Albumin/Globulin Ratio 1.4 (1-3); BUN/Creatinine Ratio 30.6 (8-20); C Reactive Protein 1.33 mg/L (<8.01); Calcium 10.4 mg/dL (8.6-10.3); EGFR African American 57.8 (>60); EGFR Non-African American 47.8 (>60); Potassium 3.6 mmol/L (3.5-5.0); Total Bilirubin 0.4 mg/dL (0.2-1.0); Total Protein 7.2 g/dL (6.4-8.9)
[2018-10-25] MEDS ORDERED: NS 0.9% 1000 ML** 1,000 ML IV ONE (13:55)
[2018-10-25] MEDS ORDERED: Iodixanol* (CONTRAST) 320 MG/ML 100 ML SDV IV ONE (14:06)
[2018-10-25 17:37] VITALS: BP 181/81
== END 2018-10-25 17:36 | disposition home or self-care (01) ==
LOC: ED 09:52
DX: R31.9 Hematuria, unspecified (principal); N32.9 Bladder disorder, unspecified; R00.1 Bradycardia, unspecified; E78.00 Pure hypercholesterolemia, unspecified; I10 Essential (primary) hypertension
CPT/HCPCS: 36415; 71046; 74178; 76377; 80053; 81003; 81015; 83690; 85025; 86140; 87086; 93005; 96374; 99283; Q9967

== ENCOUNTER → 2018-11-07 | Day surgery (SDC) | payer MEDICARE ==
--- NOTE | 2018-11-05 19:21 | HP ---
CC: Dr. Laurence Levin * ADMITTING HISTORY AND PHYSICAL: DATE OF ADMISSION/OPERATION: 11/07/18 ADMITTING DIAGNOSES: 1. Multiple large bladder tumors. 2. Gross hematuria. PLANNED PROCEDURES: Cystoscopy, transurethral resection of multiple bladder tumors, right retrograde and right stent insertion. SURGEON: Dr. Mendes. ADMITTING HISTORY AND PHYSICAL: Laurence Omer is a 78-year-old nonsmoker who has had increasing lower abdominal and bladder discomfort for the last year. She recently started having gross hematuria, which eventually necessitated a trip to the emergency room. The emergency room contacted me and given the history of hematuria, I recommended a CT urogram, which confirmed multiple bladder lesions. She then underwent cystoscopy in my office, which had an appearance consistent with extensive superficial-appearing bladder tumors distributed throughout the bladder, predominantly on the right side. On the CT , there is no evidence of hydronephrosis, although the right side of the trigone is partially obscured by multiple superficial-appearing tumors. Of note , all of the tumors visually have the appearance of superficial transitional cell carcinoma with none of them visually appearing to be muscle invasive tumors. Because of the large tumor burden, I have explained to her that she will probably require a 2-stage transurethral resection of bladder tumors and is now being brought in for initial transurethral resection. PAST MEDICAL HISTORY: Significant for hypertension. PAST SURGICAL HISTORY: Significant for hysterectomy, repair of prolapse, and cataract surgery. MEDICATIONS ON ADMISSION: 1. Chlorthalidone 12.5 mg daily. 2. Irbesartan 150 mg daily. 3. Metoprolol 25 mg daily. 4. Flonase 2 sprays p.r.n. 5. Fenofibrate 160 mg daily. 6. Calcium 1000 mg daily. 7. Multiple other supplements. ALLERGIES: AMPICILLIN (fainting). FAMILY HISTORY: Negative for bladder or kidney cancer. SMOKING HISTORY: She is a nonsmoker and has no chronic exposure to secondhand smoke either. REVIEW OF SYSTEMS: She is, otherwise, in good health. There is no history of diabetes mellitus. She denies any chest pain or shortness of breath. PHYSICAL EXAMINATION GENERAL: Reveals a pleasant elderly lady. VITAL SIGNS: Blood pressure is 150/88, pulse 62 per minute and regular, temperature 96, oxygen saturation 99% on room air. LUNGS: Clear bilaterally. CARDIOVASCULAR EXAM: Regular rate and rhythm, S1, S2. ABDOMEN: Soft without masses. IMPRESSION: A 78-year-old nonsmoker with multiple large superficial-appearing bladder tumors. PLANNED PROCEDURE: Transurethral resection of multiple bladder tumors and right retrograde and right stent insertion (because of the large tumor burden, she may require a second-stage resection in 4 to 6 weeks). [id number]/[facility] #: [id number] MTDD
[~2018-11-07] MED LIST: Buffered Lidocaine 1% SYRIN* 1 ML/SYRINGE INTRADERM ONE; DiMENhydriNATE IV* 50 MG/ML VIAL ONE; Furosemide IV* 10 MG/ML 2 ML VIAL (20 MG) ONE; Iohexol 180 (CONTRAST) 10 ML SDV IV ONE; Lactated Ringers 1000 ML Bag* 1,000 ML IV SCH; Levofloxacin 500 MG IVPREMIX(* 500 MG/100 ML BAG IVPB ONE; Lidocaine 2% PF * 5 ML VIAL ONE; Naloxone* 0.4 MG/ML 1 ML VIAL IV PRN; Ondansetron INJ* 2 MG/ML VIAL IV PRN; Ondansetron INJ* 2 MG/ML VIAL ONE; Oxybutynin TAB* 5 MG ONE; Propofol* 10 MG/ML 20 ML BTL ONE; Rocuronium* 10 MG/ML VIAL ONE; Sodium Citrate/Citric Acid* 15 ML UDC ONE; fentaNYL* 50 MCG/ML 2 ML VIAL (100 MCG VIAL) ONE
[2018-11-07] MEDS: fentaNYL* 50 MCG/ML 2 ML VIAL (100 MCG VIAL) IV PRN ×2 (12:10→12:18)
[2018-11-07 14:59] VITALS: BP 126/64
--- NOTE | 2018-11-07 21:09 | OP ---
CC: Dr. Laurence Levin * DATE OF OPERATION: 11/07/18 - [facility] DATE OF : 44 SURGEON: Ulises Mendes MD ANESTHESIOLOGIST: Dr. Reyes. ANESTHESIA: General endotracheal. PRE-OP DIAGNOSES: 1. Gross hematuria. 2. 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 OPERATIVE PROCEDURE: 1. Transurethral resection and fulguration of multiple bladder tumors (6 to 7 cm aggregate). 2. Right retrograde pyelogram and right stent insertion. COMPLICATIONS: None. ESTIMATED BLOOD LOSS: Approximately 100 to 150 cc. STENT: 7-Samoan Pillsbury stent, right ureter. CATHETER: 22-Samoan Sullivan. INDICATIONS: Laurence Omer is a 78-year-old lady, who has had lower abdominal pain and episodic gross hematuria secondary to multiple bladder tumors. DESCRIPTION OF PROCEDURE: After induction of general endotracheal anesthesia, the patient was placed in dorsal lithotomy position. Sequential compression devices were in place and functioning. Initial evaluation revealed a small urethral caruncle. The bladder was then entered and examined. There were multiple papillary tumors distributed throughout the right lateral wall extending towards the bladder neck and the anterior bladder wall and also the posterior bladder wall. The floor of the bladder on the right side including the right side of the trigone was also involved by superficial appearing bladder tumors, although there had been no evidence of hydronephrosis on the CT scan. Initially, I could not visualize the right orifice, so I proceeded with transurethral resection of the tumors at the floor of the bladder on the right side first. Once this was done, I could then visualize the right orifice, which was intubated and a retrograde pyelogram revealed no evidence of any filling defect and no evidence of any obstruction. A 7-Samoan Pillsbury stent was placed without difficulty with good proximal and distal positioning obtained. Next, the resectoscope was reintroduced and further resection of the tumors was carried out in a systematic fashion. At the end of the procedure, about 85% to 90% of the visible tumors had been resected. There was no evidence of bladder perforation and hemostasis appeared satisfactory. My plan is to bring her back in 4 to 6 weeks for a second-look procedure, which I have discussed with her preoperatively. The patient tolerated the procedure satisfactorily and was transferred back to the recovery area in stable condition. [id number]/[facility] #: [id number] NOHEMI
== END | disposition home or self-care (01) ==
LOC: OR 07:17
PROVIDERS: ATTEND Urology
DX: C67.2 Malignant neoplasm of lateral wall of bladder (principal); I10 Essential (primary) hypertension; R31.0 Gross hematuria
CPT/HCPCS: 74420; 88305; A9270-GY; C2625; J1240; J1940; J1956; J2405; J2704; J3010

== ENCOUNTER 2018-12-24 05:44 | Day surgery (SDC) | payer MEDICARE ==
--- NOTE | 2018-12-05 07:06 | HP ---
CC: Dr. Laurence Levin * ADMITTING HISTORY AND PHYSICAL: DATE OF ADMISSION: 12/24/18 - [facility] ADMITTING DIAGNOSES: Bladder cancer. PLANNED PROCEDURE: Cystoscopy, transurethral resection of bladder tumor (second - look procedure). SURGEON: Dr. Mendes. HISTORY OF PRESENT ILLNESS: Laurence Omer is a 78-year-old nonsmoker, who had undergone transurethral resection of multiple high-grade superficial bladder tumors on 11/07/18. She had also undergone right stent insertion at that time. Pathology had revealed high-grade but non-muscle invasive bladder cancer and she is now being brought in for second-look procedure. PAST MEDICAL HISTORY: Significant for: 1. Hypertension. 2. Recently diagnosed superficial bladder cancer. PAST SURGICAL HISTORY: Significant for: 1. Transurethral resection of bladder tumor and right stent insertion on . 2. Repair of uterine prolapse. 3. Hysterectomy. 4. Cataract surgery. MEDICATIONS: On admission: 1. Irbesartan 150 mg daily. 2. Flonase 2 sprays p.r.n. 3. Metoprolol 25 mg daily. 4. Chlorthalidone 12.5 mg daily. 5. Calcium 1000 mg daily. 6. Fenofibrate 160 mg daily. ALLERGIES: AMPICILLIN. SMOKING HISTORY: She is a nonsmoker. REVIEW OF SYSTEMS: She is otherwise in excellent health. There is no history of diabetes mellitus or any other major systemic illness. PHYSICAL EXAMINATION GENERAL: Reveals a pleasant, elderly lady. VITAL SIGNS: Blood pressure is 126/80, pulse 57 per minute and regular, oxygen saturation 99% on room air, temperature 97. LUNGS: Clear bilaterally. CARDIOVASCULAR: Regular rate and rhythm. S1, S2. IMPRESSION: A 78-year-old nonsmoker lady with multiple high-grade superficial bladder tumors. Plan is cystoscopy, transurethral resection of bladder tumors ( second-look procedure). [id number]/[facility] #: [id number] [facility]
[~2018-12-24 05:44] MED LIST changes: -DiMENhydriNATE IV* 50 MG/ML VIAL ONE; -Furosemide IV* 10 MG/ML 2 ML VIAL (20 MG) ONE; -Iohexol 180 (CONTRAST) 10 ML SDV IV ONE; -Lactated Ringers 1000 ML Bag* 1,000 ML IV SCH; -Levofloxacin 500 MG IVPREMIX(* 500 MG/100 ML BAG IVPB ONE; -Lidocaine 2% PF * 5 ML VIAL ONE; -Naloxone* 0.4 MG/ML 1 ML VIAL IV PRN; -Ondansetron INJ* 2 MG/ML VIAL IV PRN; -Ondansetron INJ* 2 MG/ML VIAL ONE; -Oxybutynin TAB* 5 MG ONE; -Propofol* 10 MG/ML 20 ML BTL ONE; -Rocuronium* 10 MG/ML VIAL ONE; -Sodium Citrate/Citric Acid* 15 ML UDC ONE; -fentaNYL* 50 MCG/ML 2 ML VIAL (100 MCG VIAL) ONE
[2018-12-24] MEDS ORDERED: Acetaminophen TAB* 325 MG PO ONE (06:00)
[2018-12-24] MEDS ORDERED: Famotidine IV* 10 MG/ML 2 ML (20 mg) IV ONE (06:00)
[2018-12-24] MEDS ORDERED: Lactated Ringers 1000 ML Bag* 1,000 ML IV SCH (06:00)
[2018-12-24] MEDS ORDERED: Levofloxacin 500 MG IVPREMIX(* 500 MG/100 ML BAG IVPB ONE (06:46)
[2018-12-24] MEDS ORDERED: Famotidine IV* 10 MG/ML 2 ML (20 mg) ONE (06:46)
[2018-12-24] MEDS ORDERED: Acetaminophen TAB* 325 MG ONE (06:46)
[2018-12-24] MEDS ORDERED: Midazolam* 1 MG/ML 2 ML VIAL (2 MG) ONE (07:14)
[2018-12-24] MEDS ORDERED: fentaNYL* 50 MCG/ML 2 ML VIAL (100 MCG VIAL) ONE ×2 (07:14→09:27)
[2018-12-24] MEDS ORDERED: Lidocaine 2% PF * 5 ML VIAL ONE (07:35)
[2018-12-24] MEDS ORDERED: Ondansetron INJ* 2 MG/ML VIAL ONE ×2 (07:36→11:13)
[2018-12-24] MEDS ORDERED: Propofol* 10 MG/ML 20 ML BTL ONE (07:36)
[2018-12-24] MEDS ORDERED: Rocuronium* 10 MG/ML VIAL ONE (07:36)
[2018-12-24] MEDS ORDERED: Dexamethasone IV* 4 MG/ML 1 ML (4 MG) ONE (07:36)
[2018-12-24] MEDS ORDERED: EPHEDrine (Pressors)* 50 MG/ML VIAL ONE (07:51)
[2018-12-24] MEDS ORDERED: VASOPRESSIN 20 UNITS/ML 1 ML VIAL ONE (07:52)
[2018-12-24] MEDS ORDERED: HYDROcodone/ACETAMIN 5-325 MG* 1 TAB PO PRN (08:18)
[2018-12-24] MEDS ORDERED: DiMENhydriNATE IV* 50 MG/ML VIAL IV PUSH PRN (08:18)
[2018-12-24] MEDS ORDERED: Ondansetron INJ* 2 MG/ML VIAL IV PRN (08:18)
[2018-12-24] MEDS ORDERED: Naloxone* 0.4 MG/ML 1 ML VIAL IV PRN (08:18)
[2018-12-24] MEDS ORDERED: Furosemide IV* 10 MG/ML 2 ML VIAL (20 MG) ONE (08:27)
[2018-12-24] MEDS: fentaNYL* 50 MCG/ML 2 ML VIAL (100 MCG VIAL) IV PRN ×2 (09:27→09:35)
[2018-12-24] MEDS ORDERED: HYDROcodone/ACETAMIN 5-325 MG* 1 TAB ONE (09:44)
--- NOTE | 2018-12-24 10:33 | OP ---
CC: Dr. Laurence Levin; Dr. Ulises Mendes OPERATIVE SUMMARY: DATE OF OPERATION: 12/24/18 DATE OF : 44 SURGEON: Dr. Ulises Mendes. ANESTHESIOLOGIST: Dr. James. ANESTHESIA: General endotracheal. PRE-OP DIAGNOSIS: Bladder cancer. POST-OP DIAGNOSIS: Bladder cancer. OPERATIVE PROCEDURE: Transurethral resection and fulguration of multiple bladder tumors. COMPLICATIONS: None. BLOOD LOSS: Less than 50 cc. INDICATIONS: Laurence Omer is a 78-year-old nonsmoker who had previously undergone transurethral re section of multiple superficial high-grade bladder tumors. She is now being brought in for a repeat resection given the vast number of tumors that had initially been present. OPERATIVE FINDINGS: Multiple superficial-appearing bladder tumors distributed throughout posterior, anterior, and lateral dunlap of bladder (no evidence visibly of muscle invasive appearing tumor). DESCRIPTION OF PROCEDURE: After induction of general endotracheal anesthesia, the patient was placed in dorsal lithotomy position, sequential compression devices were in place and functioning. Initial cystoscopy showed previously placed right stent to be in appropriate position. There were multiple tumors distributed throughout the bladder, all having an appearance of superficial bladder cancer. Us ing the biopsy forceps, dental detail representative biopsies were obtained and sent for histopathology. Next, the resectoscope was introduced and all of the visible tumors were resected and/or fulgurated. There wa s no evidence of bladder perforation, and hemostasis appeared satisfactory at the end of the procedur e. She certainly will be at very high risk for recurrent bladder tumors given the fact that almost t he entire bladder surface was involved with these superficial high- grade tumors and also given the l arge resected surface area, I am going to hold off on any postoperative mitomycin treatment because o f the risk of absorption. A 24-Welsh Sullivan was placed without difficulty and the patient was transferred back to the recovery area. [id number]/[facility] #: [id number]
[2018-12-24 11:08] VITALS: BP 140/70
== END 2018-12-24 11:35 | disposition home or self-care (01) ==
LOC: OR 05:44
PROVIDERS: ATTEND Urology
DX: C67.8 Malignant neoplasm of overlapping sites of bladder (principal); I10 Essential (primary) hypertension; Z88.1 Allergy status to other antibiotic agents; K21.9 Gastro-esophageal reflux disease without esophagitis; I73.00 Raynaud's syndrome without gangrene
CPT/HCPCS: 88305; A9270-GY; J1100; J1940; J1956; J2250; J2405; J2704; J3010

== ENCOUNTER 2024-02-07 17:48 | Inpatient (IN) ==
[2024-02-07 18:35] LABS: ABS Basophils 0.1 10^3/uL (0.0-0.1); ABS Eosinophils 0.1 10^3/uL (0.0-0.5); ABS Lymphocytes 0.3 10^3/uL (1.0-4.8); ABS Monocytes 0.4 10^3/uL (0.0-0.9); ABS Neutrophils 6.1 10^3/uL (1.5-7.6); Eosinophil % 1.4 %; Hematocrit 41.8 % (35-45); Hemoglobin 14.3 g/dL (11.5-14.3); Lymphocyte % 3.7 %; Mean Corpuscular Hemoglobin 31.2 pg (27-33); Mean Corpuscular Hgb Conc 34.1 g/dL (31-36); Mean Corpuscular Volume 91.4 fL (80-97); Mean Platelet Volume 8.9 fL (7.5-11.2); Platelet Count 146 10^3/uL (150-450); Red Blood Count 4.57 10^6/uL (3.63-4.92); Red Cell Distribution Width 15.8 % (12-17); White Blood Count 6.9 10^3/uL (3.8-11.8)
[2024-02-07 18:47] LABS: Urine Appearance Turbid; Urine Bilirubin Negative (Negative); Urine Blood Trace (Negative); Urine Color Light-Yellow; Urine Glucose Negative (Negative); Urine Ketones Negative (Negative); Urine Nitrite Negative (Negative); Urine Protein Negative (Negative); Urine Specific Gravity 1.011 (1.002-1.030); Urine Urobilinogen Negative (Negative)
[2024-02-07 18:51] LABS: Activated Partial Thrombo Time 29.3 seconds (26.0-38.0); INR 1.12 (0.85-1.14)
[2024-02-07] MEDS: Lactated Ringers 1000 ml BAG IV.FLUID IV ONE (19:10)
[2024-02-07] MEDS: Acetaminophen IV 1 GM/100ML 1,000 MG/100 ML BAG IV ONE (19:10)
[2024-02-07 19:11] LABS: Albumin 4.6 g/dL (3.5-5.7); Albumin/Globulin Ratio 1.5 (1-3); C Reactive Protein 31.86 mg/L (<8.01); Calcium 10.9 mg/dL (8.6-10.3); Creatinine, Serum 1.08 mg/dL (0.51-0.95); Globulin 3.1 g/dL (2-4); Potassium 3.9 mmol/L (3.5-5.0); Total Bilirubin 0.6 mg/dL (0.2-1.0); Total Protein 7.7 g/dL (6.4-8.9); eGFR CKD-EPI 51.6 (>60)
[2024-02-07 19:40] LABS: Urine Amorphous Crystals Present /HPF (Absent); Urine Bacteria Absent /HPF (Absent); Urine Red Blood Cell 1+(3-5/hpf) /HPF (0-Trace); Urine White Blood Cell Trace(0-5/hpf) /HPF (0-Trace)
[2024-02-07 20:27] LABS: High Sensitivity Troponin 1 Hr 54 pg/mL (<15)
[2024-02-07] MEDS: Iodixanol 320 (CONTRAST) 100 ML SDV IV ONE (22:48)
[2024-02-07] MEDS: cefTRIAXone 1 gm/50 mL D5W 1 GM/50 ML BAG IV ONE (23:16)
[2024-02-08] MEDS: Lactated Ringers 1000 ml BAG 1,000 ML IV ONE ×3 (06:01→23:05)
[2024-02-08] MEDS ORDERED: Zosyn per Pharmacy NOTE FOLLOW UP SCH (07:00)
[2024-02-08] MEDS: Cholecalciferol (VIT D3) 1,000 unit TAB PO SCH (08:01)
[2024-02-08] MEDS: Piperacillin/Tazobac 3.375 BAG 3.375 GM/100 ML BAG IV ONE (09:41)
[2024-02-08] MEDS: Enoxaparin 40 MG/0.4 ML SYR SUBCUT SCH (10:51)
[2024-02-08 11:45] LABS: Anion Gap 9 mmol/L (2-16); Blood Urea Nitrogen 21 mg/dL (6-24); CO2 Carbon Dioxide 24 mmol/L (22-32); Calcium 9.1 mg/dL (8.6-10.3); Chloride 104 mmol/L (101-111); Creatinine, Serum 1.28 mg/dL (0.51-0.95); Glucose 99 mg/dL (70-100); Sodium 137 mmol/L (135-145); eGFR CKD-EPI 42.1 (>60)
[2024-02-08 12:32] LABS: Hemoglobin 12.4 g/dL (11.5-14.3); Mean Corpuscular Hemoglobin 31.2 pg (27-33); Mean Corpuscular Hgb Conc 33.5 g/dL (31-36); Mean Corpuscular Volume 93.2 fL (80-97); Red Blood Count 3.98 10^6/uL (3.63-4.92); Red Cell Distribution Width 15.7 % (12-17); White Blood Count 6.5 10^3/uL (3.8-11.8)
[2024-02-08 13:40] LABS: ABS Eosinophils 0.1 10^3/uL (0.0-0.5); ABS Lymphocytes 0.1 10^3/uL (1.0-4.8); ABS Monocytes 0.1 10^3/uL (0.0-0.9); ABS Neutrophils 6.3 10^3/uL (1.5-7.6); ABS Nucleated RBC 0.01 10^3/ul; Eosinophil % 0.8 %; Lymphocyte % 1.2 %; Mean Platelet Volume 8.8 fL (7.5-11.2); Nucleated Red Blood Cells % 0.1 %/100WBC (0.0-0.8); Platelet Count 94 10^3/uL (150-450)
[2024-02-08] MEDS: Potassium Chlor 20 meq TAB.ER PO ONE ×2 (14:21→20:57)
[2024-02-08] MEDS: ZOSYN 3.375 GM Q8H per EXTENDED INFUSION IV SCH (14:31)
[2024-02-08 15:51] LABS: Magnesium 1.6 mg/dL (1.9-2.7)
[2024-02-08] MEDS: Magnesium Sulf 4 GM/100 ML IV 4,000 MG/100 ML BAG IVPB ONE (17:34)
[2024-02-08] MEDS: Acetaminophen IV 1 GM/100ML 1,000 MG/100 ML BAG IV SCH (18:39)
[2024-02-08] MEDS: Acetaminophen IV 1 GM/100ML 1,000 MG/100 ML BAG IV ONE (18:42)
[2024-02-08 19:24] LABS: Albumin 3.3 g/dL (3.5-5.7); Albumin/Globulin Ratio 1.4 (1-3); Calcium 9.2 mg/dL (8.6-10.3); Creatinine, Serum 1.47 mg/dL (0.51-0.95); Globulin 2.3 g/dL (2-4); Potassium 3.6 mmol/L (3.5-5.0); Total Bilirubin 0.6 mg/dL (0.2-1.0); Total Protein 5.6 g/dL (6.4-8.9); eGFR CKD-EPI 35.6 (>60)
[2024-02-08 19:49] LABS: ABS Eosinophils 0.1 10^3/uL (0.0-0.5); ABS Lymphocytes 0.1 10^3/uL (1.0-4.8); ABS Monocytes 0.1 10^3/uL (0.0-0.9); ABS Neutrophils 4.6 10^3/uL (1.5-7.6); Eosinophil % 1.3 %; Hematocrit 31.3 % (35-45); Hemoglobin 10.6 g/dL (11.5-14.3); Lymphocyte % 1.9 %; Mean Corpuscular Hemoglobin 31.4 pg (27-33); Mean Corpuscular Hgb Conc 33.9 g/dL (31-36); Mean Corpuscular Volume 92.5 fL (80-97); Mean Platelet Volume 8.2 fL (7.5-11.2); Nucleated Red Blood Cells % 0.1 %/100WBC (0.0-0.8); Platelet Count 21 10^3/uL (150-450); Red Blood Count 3.38 10^6/uL (3.63-4.92); Red Cell Distribution Width 15.5 % (12-17); White Blood Count 4.9 10^3/uL (3.8-11.8)
[2024-02-08 20:45] LABS: High Sensitivity Troponin 1 Hr 100 pg/mL (<15)
[2024-02-08 22:52] LABS: Activated Partial Thrombo Time 37.6 seconds (26.0-38.0); INR 1.68 (0.85-1.14)
[2024-02-08] MEDS: DOXYcycline 100 MG in NS 0.9% 250 ml 250 ML IVPB SCH (22:56)
[2024-02-08] MEDS: Potassium Chloride LIQUID 20 MEQ/15 ML LIQUID PO ONE (22:57)
[2024-02-08] MEDS ORDERED: cefTRIAXone 1 gm/50 mL D5W 1 GM/50 ML BAG IV SCH (23:00)
[2024-02-08 23:14] LABS: Ferritin 103.9 ng/mL (11-307)
[2024-02-08 23:21] LABS: Platelet Count 71 10^3/ul (150-450)
[2024-02-09 00:50] LABS: Schistocytes ABSENT
[2024-02-09 07:53] LABS: Hematocrit 32.2 % (35-45); Mean Corpuscular Hemoglobin 31.5 pg (27-33); Mean Corpuscular Hgb Conc 34.2 g/dL (31-36); Mean Corpuscular Volume 92.2 fL (80-97); Red Cell Distribution Width 15.7 % (12-17); White Blood Count 5.7 10^3/uL (3.8-11.8)
[2024-02-09 08:24] LABS: Creatinine, Serum 1.28 mg/dL (0.51-0.95); eGFR CKD-EPI 42.1 (>60)
[2024-02-09 08:31] LABS: Mean Platelet Volume 9.3 fL (7.5-11.2); Platelet Count 68 10^3/uL (150-450)
[2024-02-09 08:35] LABS: ABS Eosinophils 0.1 10^3/uL (0.0-0.5); ABS Lymphocytes 0.1 10^3/uL (1.0-4.8); ABS Monocytes 0.1 10^3/uL (0.0-0.9); ABS Neutrophils 5.4 10^3/uL (1.5-7.6); Eosinophil % 1.8 %; Lymphocyte % 2.6 %; RBC Morphology Normal (Normal)
[2024-02-09] MEDS: Cefepime 1 GM in Dextrose 1 GM/50 ML BAG IV SCH ×2 (08:46→21:03)
[2024-02-09] MEDS ORDERED: Enoxaparin 30 MG/0.3 ML SYR SUBCUT SCH (09:00)
[2024-02-09] MEDS ORDERED: Cefepime ADVAN 1 GM in NS 0.9% 50 ML 50 ML IVPB SCH (09:00)
[2024-02-09] MEDS: Lactated Ringers 1000 ml BAG 1,000 ML IV SCH (09:33)
[2024-02-09 10:25] LABS: RBC Parasite Smear No Parasites Seen (No Parasite)
[2024-02-09 13:07] LABS: Urine Appearance Clear; Urine Bilirubin Negative (Negative); Urine Blood Trace (Negative); Urine Color Yellow; Urine Glucose Negative (Negative); Urine Ketones Negative (Negative); Urine Nitrite Negative (Negative); Urine Protein Trace (Negative); Urine Specific Gravity 1.029 (1.002-1.030); Urine Urobilinogen Negative (Negative); Urine pH 7.5 (5.0-8.0)
[2024-02-09 13:14] LABS: Urine Bacteria Absent /HPF (Absent); Urine Red Blood Cell 1+(3-5/hpf) /HPF (0-Trace); Urine Squamous Epithelial Cell Present /HPF (Absent); Urine White Blood Cell Trace(0-5/hpf) /HPF (0-Trace)
[2024-02-09 15:53] LABS: Albumin 2.7 g/dL (3.5-5.7); Albumin/Globulin Ratio 1.2 (1-3); Calcium 8.5 mg/dL (8.6-10.3); Creatinine, Serum 1.22 mg/dL (0.51-0.95); Globulin 2.2 g/dL (2-4); Total Bilirubin 0.4 mg/dL (0.2-1.0); Total Protein 4.9 g/dL (6.4-8.9); eGFR CKD-EPI 44.6 (>60)
[2024-02-09] MEDS: Acetaminophen IV 1 GM/100ML 1,000 MG/100 ML BAG IV ONE (17:42)
[2024-02-09] MEDS: Lactated Ringers 1000 ml BAG 1,000 ML IV ONE (19:53)
[2024-02-09] MEDS: methylPREDNISolone SOD SUCC 40 mg/ml 1 ml VIAL IV ONE (21:30)
[2024-02-09] MEDS ORDERED: Vancomycin per Pharmacy 1 EA NOTE FOLLOW UP PRN (21:38)
[2024-02-09] MEDS: Vancomycin 750 MG in NS 0.9% 250 ml 250 ML IVPB ONE (22:41)
[2024-02-10 06:36] LABS: Hematocrit 29.4 % (35-45); Hemoglobin 9.9 g/dL (11.5-14.3); Mean Corpuscular Hgb Conc 33.7 g/dL (31-36); Mean Corpuscular Volume 92.2 fL (80-97); Red Blood Count 3.19 10^6/uL (3.63-4.92); White Blood Count 5.7 10^3/uL (3.8-11.8)
[2024-02-10 07:42] LABS: ALT 32 U/L (7-52); Albumin 2.4 g/dL (3.5-5.7); Albumin/Globulin Ratio 1.1 (1-3); Alkaline Phosphatase 23 U/L (35-149); Anion Gap 8 mmol/L (2-16); Blood Urea Nitrogen 36 mg/dL (6-24); CO2 Carbon Dioxide 20 mmol/L (22-32); Calcium 7.9 mg/dL (8.6-10.3); Chloride 108 mmol/L (101-111); Creatinine, Serum 1.21 mg/dL (0.51-0.95); Globulin 2.1 g/dL (2-4); Glucose 128 mg/dL (70-100); Sodium 136 mmol/L (135-145); Total Bilirubin 0.5 mg/dL (0.2-1.0); Total Protein 4.5 g/dL (6.4-8.9)
[2024-02-10 08:44] LABS: ABS Lymphocytes 0.3 10^3/uL (1.0-4.8); ABS Monocytes 0.1 10^3/uL (0.0-0.9); ABS Neutrophils 5.1 10^3/uL (1.5-7.6); Eosinophil % 0.9 %; Lymphocyte % 5.5 %; Mean Platelet Volume 10.4 fL (7.5-11.2); Nucleated Red Blood Cells % 0.1 %/100WBC (0.0-0.8); Platelet Count 65 10^3/uL (150-450)
[2024-02-10 10:01] LABS: C Reactive Protein 223.35 mg/L (<8.01); Magnesium 2.1 mg/dL (1.9-2.7)
[2024-02-10] MEDS: Polyethylene Glycol 3350 17 GM PACKET PO SCH (10:26)
[2024-02-10] MEDS: Vancomycin 500 MG in NS 0.9% 250 ML IVPB SCH (11:14)
[2024-02-10] MEDS ORDERED: Sulfur Hexaflouride MICROSPHR 25 MG VIAL IV PRN (14:00)
[2024-02-10 15:48] LABS: Ferritin 160.8 ng/mL (11-307)
[2024-02-10] MEDS: Famotidine IV 10 MG/ML 2 ml VIAL (20 mg) IV SLOW PU ONE (21:24)
[2024-02-10] MEDS: guaiFENesin 100 mg/5 ml LIQ unit dose cup PO PRN (23:22)
[2024-02-11 07:58] LABS: Hematocrit 27.8 % (35-45); Hemoglobin 9.7 g/dL (11.5-14.3); Mean Corpuscular Hemoglobin 31.7 pg (27-33); Mean Corpuscular Hgb Conc 34.9 g/dL (31-36); Mean Corpuscular Volume 90.9 fL (80-97); Mean Platelet Volume 10.8 fL (7.5-11.2); Platelet Count 53 10^3/uL (150-450); Red Blood Count 3.06 10^6/uL (3.63-4.92); Red Cell Distribution Width 15.7 % (12-17)
[2024-02-11 08:22] LABS: Albumin 2.5 g/dL (3.5-5.7); Albumin/Globulin Ratio 1.2 (1-3); Calcium 8.2 mg/dL (8.6-10.3); Creatinine, Serum 1.12 mg/dL (0.51-0.95); Globulin 2.1 g/dL (2-4); Magnesium 1.8 mg/dL (1.9-2.7); Potassium 3.8 mmol/L (3.5-5.0); Total Bilirubin 0.4 mg/dL (0.2-1.0); Total Protein 4.6 g/dL (6.4-8.9); eGFR CKD-EPI 49.4 (>60)
[2024-02-11 08:43] LABS: ABS Eosinophils 0.2 10^3/uL (0.0-0.5); ABS Lymphocytes 0.9 10^3/uL (1.0-4.8); ABS Monocytes 0.2 10^3/uL (0.0-0.9); ABS Neutrophils 6.7 10^3/uL (1.5-7.6); Eosinophil % 2.3 %; RBC Morphology Normal (Normal)
[2024-02-11] MEDS: Famotidine IV 10 MG/ML 2 ml VIAL (20 mg) IV SLOW PU SCH (09:02)
[2024-02-11] MEDS: Magnesium Sulfate 2 gm BAG 2 GM/50 ML BAG IVPB ONE (09:02)
[2024-02-11 11:37] LABS: Creatinine, Serum 1.11 mg/dL (0.51-0.95); Vancomycin Trough 10.4 mcg/mL; eGFR CKD-EPI 49.9 (>60)
[2024-02-11] MEDS: Vancomycin Trough Check NOTE FOLLOW UP ONE (12:56)
[2024-02-11 23:57] LABS: Anaplasma phagocytophilum Negative (Negative); B. miyamotoi PCR, B Negative (Negative); Babesia divergens/MO-1 Negative (Negative); Babesia ducani Negative (Negative); Ehrlichia chaffeensis Negative (Negative); Ehrlichia ewingii/canis Negative (Negative); Ehrlichia muris eauclairensis Negative (Negative)
[2024-02-12 07:02] LABS: Hemoglobin 8.6 g/dL (11.5-14.3); Mean Corpuscular Hgb Conc 34.5 g/dL (31-36); Mean Corpuscular Volume 89.8 fL (80-97); Platelet Count 51 10^3/uL (150-450); Red Blood Count 2.78 10^6/uL (3.63-4.92); Red Cell Distribution Width 15.9 % (12-17); White Blood Count 6.9 10^3/uL (3.8-11.8)
[2024-02-12 07:10] LABS: Albumin 2.3 g/dL (3.5-5.7); Albumin/Globulin Ratio 1.2 (1-3); Calcium 8.1 mg/dL (8.6-10.3); Creatinine, Serum 0.78 mg/dL (0.51-0.95); Magnesium 1.5 mg/dL (1.9-2.7); Potassium 3.5 mmol/L (3.5-5.0); Total Bilirubin 0.4 mg/dL (0.2-1.0); Total Protein 4.3 g/dL (6.4-8.9); eGFR CKD-EPI 76.3 (>60)
[2024-02-12 07:37] LABS: ABS Eosinophils 0.3 10^3/uL (0.0-0.5); ABS Lymphocytes 1.5 10^3/uL (1.0-4.8); ABS Monocytes 0.4 10^3/uL (0.0-0.9); ABS Neutrophils 4.7 10^3/uL (1.5-7.6); Eosinophil % 4.1 %; Lymphocyte % 22.2 %; Nucleated Red Blood Cells % 0.1 %/100WBC (0.0-0.8)
[2024-02-12 08:44] LABS: TSH Ultra Thyroid Stim Horm 4.62 mcIU/mL (0.34-5.60)
[2024-02-12] MEDS: Magnesium Sulf 4 GM/100 ML IV 4,000 MG/100 ML BAG IVPB ONE (09:55)
[2024-02-12] MEDS: [UNRECOGNIZED DRUG - OTHER] BOTH EYES PRN (13:48)
[2024-02-12 16:14] LABS: C Reactive Protein 76.31 mg/L (<8.01)
[2024-02-12 17:03] LABS: Hepatitis B Surface Antigen Nonreactive (Nonreactive)
[2024-02-12 17:08] LABS: Hepatitis A Ab IgM Negative (Negative); Hepatitis B Core IgM Nonreactive (Nonreactive)
[2024-02-12 17:20] LABS: Hepatitis C Antibody Negative (Negative)
[2024-02-12] MEDS: DOXYcycline 100 MG in NS 0.9% 250 ml 250 ML IVPB SCH (17:29)
[2024-02-12 18:08] LABS: Adenovirus Undetected (Undetected); Bordetella parapertussis Undetected (Undetected); Bordetella pertussis Undetected (Undetected); Chlamydophila pneumoniae Undetected (Undetected); Coronavirus 229E Undetected (Undetected); Coronavirus HKU1 Undetected (Undetected); Coronavirus NL63 Undetected (Undetected); Coronavirus OC43 Undetected (Undetected); Human Metapneumovirus Undetected (Undetected); Human Rhinovirus/Enterovirus Undetected (Undetected); Influenza A Undetected (Undetected); Influenza B Undetected (Undetected); Mycoplasmoides pneumoniae Undetected (Undetected); Parainfluenza Virus 1 Undetected (Undetected); Parainfluenza Virus 2 Undetected (Undetected); Parainfluenza Virus 3 Undetected (Undetected); Parainfluenza Virus 4 Undetected (Undetected); Respiratory Syncytial Virus Undetected (Undetected); Specimen Source NASOPHARYNGEAL SWAB
[2024-02-12 20:47] LABS: Immature Retic Fraction 0.33
[2024-02-12 20:55] LABS: Corrected Retic Count 0.3 % (0.5-2.2); Hematocrit for Retic CNT 25.7 % (35-45)
[2024-02-12 23:55] LABS: HIV 4th Generation Nonreactive (Nonreactive)
[2024-02-13 06:39] LABS: Hematocrit 24.5 % (35-45); Hemoglobin 8.7 g/dL (11.5-14.3); Mean Corpuscular Hemoglobin 31.6 pg (27-33); Mean Corpuscular Hgb Conc 35.3 g/dL (31-36); Mean Corpuscular Volume 89.6 fL (80-97); Red Blood Count 2.74 10^6/uL (3.63-4.92); Red Cell Distribution Width 15.5 % (12-17); White Blood Count 7.3 10^3/uL (3.8-11.8)
[2024-02-13 07:05] LABS: Calcium 7.5 mg/dL (8.6-10.3); Creatinine, Serum 0.69 mg/dL (0.51-0.95); Potassium 3.3 mmol/L (3.5-5.0); eGFR CKD-EPI 87.1 (>60)
[2024-02-13 07:06] LABS: Albumin 2.3 g/dL (3.5-5.7); Albumin/Globulin Ratio 1.2 (1-3); Magnesium 1.6 mg/dL (1.9-2.7); Total Bilirubin 0.4 mg/dL (0.2-1.0); Total Protein 4.3 g/dL (6.4-8.9)
[2024-02-13 07:29] LABS: ABS Basophils 0.1 10^3/uL (0.0-0.1); ABS Eosinophils 0.3 10^3/uL (0.0-0.5); ABS Lymphocytes 2.2 10^3/uL (1.0-4.8); ABS Monocytes 0.8 10^3/uL (0.0-0.9); ABS Neutrophils 3.9 10^3/uL (1.5-7.6); Anisocytosis 1+; Eosinophil % 4.1 %; Lymphocyte % 30.6 %; Mean Platelet Volume 10.6 fL (7.5-11.2); Platelet Count 67 10^3/uL (150-450); Polychromasia 1+
[2024-02-13] MEDS: Potassium Chlor 20 meq TAB.ER PO ONE (09:41)
[2024-02-13] MEDS: Magnesium Sulfate 2 gm BAG 2 GM/50 ML BAG IVPB ONE (09:41)
[2024-02-13] MEDS ORDERED: Sulfur Hexaflouride MICROSPHR 25 MG VIAL IV PRN (10:11)
[2024-02-13] MEDS: Magnesium Sulfate IV 1GM/100ML 1 GM/100 ML BAG IV ONE (11:07)
[2024-02-13 11:14] LABS: Creatinine, Serum 0.69 mg/dL (0.51-0.95); eGFR CKD-EPI 87.1 (>60)
[2024-02-13] MEDS: Vancomycin Trough Check NOTE FOLLOW UP ONE (11:46)
[2024-02-13] MEDS: SOOTHE XP BOTH EYES SCH (21:16)
[2024-02-14 06:15] LABS: Hematocrit 25.8 % (35-45); Mean Corpuscular Hemoglobin 31.3 pg (27-33); Mean Corpuscular Hgb Conc 34.8 g/dL (31-36); Mean Platelet Volume 10.3 fL (7.5-11.2); Platelet Count 114 10^3/uL (150-450); Red Blood Count 2.87 10^6/uL (3.63-4.92); Red Cell Distribution Width 15.8 % (12-17); White Blood Count 7.6 10^3/uL (3.8-11.8)
[2024-02-14 06:54] LABS: Calcium 7.7 mg/dL (8.6-10.3); Creatinine, Serum 0.62 mg/dL (0.51-0.95); Potassium 3.7 mmol/L (3.5-5.0); eGFR CKD-EPI 89.4 (>60)
[2024-02-14 07:30] LABS: ABS Basophils 0.1 10^3/uL (0.0-0.1); ABS Eosinophils 0.3 10^3/uL (0.0-0.5); ABS Lymphocytes 2.5 10^3/uL (1.0-4.8); ABS Monocytes 0.9 10^3/uL (0.0-0.9); ABS Neutrophils 3.8 10^3/uL (1.5-7.6); ABS Nucleated RBC 0.01 10^3/ul; Eosinophil % 4.4 %; Nucleated Red Blood Cells % 0.1 %/100WBC (0.0-0.8)
[2024-02-14 12:22] LABS: C-ANCA Negative (Negative); P-ANCA Negative (Negative)
[2024-02-15 09:05] LABS: ABS Basophils 0.1 10^3/uL (0.0-0.1); ABS Eosinophils 0.2 10^3/uL (0.0-0.5); ABS Lymphocytes 2.3 10^3/uL (1.0-4.8); ABS Monocytes 0.8 10^3/uL (0.0-0.9); ABS Neutrophils 4.1 10^3/uL (1.5-7.6); ABS Nucleated RBC 0.01 10^3/ul; Hematocrit 27.5 % (35-45); Hemoglobin 9.3 g/dL (11.5-14.3); Lymphocyte % 30.6 %; Mean Corpuscular Hemoglobin 30.8 pg (27-33); Mean Corpuscular Hgb Conc 33.8 g/dL (31-36); Mean Corpuscular Volume 91.1 fL (80-97); Nucleated Red Blood Cells % 0.1 %/100WBC (0.0-0.8); Platelet Count 172 10^3/uL (150-450); Red Blood Count 3.02 10^6/uL (3.63-4.92); White Blood Count 7.5 10^3/uL (3.8-11.8)
[2024-02-15 09:20] LABS: Calcium 8.2 mg/dL (8.6-10.3); Creatinine, Serum 0.63 mg/dL (0.51-0.95); Potassium 3.8 mmol/L (3.5-5.0); eGFR CKD-EPI 89.1 (>60)
[2024-02-15 11:18] LABS: IgG Immunoblot Positive
[2024-02-15 11:19] LABS: IgM Immunoblot Positive
[2024-02-15] MEDS: Enoxaparin 40 MG/0.4 ML SYR SUBCUT SCH (11:30)
[2024-02-17 06:15] LABS: Hematocrit 27.1 % (35-45); Hemoglobin 9.2 g/dL (11.5-14.3); Mean Corpuscular Hgb Conc 33.8 g/dL (31-36); Mean Corpuscular Volume 91.8 fL (80-97); Mean Platelet Volume 9.6 fL (7.5-11.2); Platelet Count 224 10^3/uL (150-450); Red Blood Count 2.96 10^6/uL (3.63-4.92); Red Cell Distribution Width 16.1 % (12-17); White Blood Count 7.4 10^3/uL (3.8-11.8)
[2024-02-17 06:48] LABS: Calcium 8.7 mg/dL (8.6-10.3); Creatinine, Serum 0.7 mg/dL (0.51-0.95); Potassium 3.8 mmol/L (3.5-5.0); eGFR CKD-EPI 86.8 (>60)
[2024-02-17 08:44] LABS: ABS Basophils 0.1 10^3/uL (0.0-0.1); ABS Eosinophils 0.2 10^3/uL (0.0-0.5); ABS Lymphocytes 1.9 10^3/uL (1.0-4.8); ABS Monocytes 1.1 10^3/uL (0.0-0.9); ABS Neutrophils 4.1 10^3/uL (1.5-7.6); Lymphocyte % 25.5 %
[2024-02-21] MEDS: Fluticasone NASAL SPRAY 50MCG 16 gm SPRAY BTL BOTH NARES PRN (09:24)
[2024-02-21 10:16] VITALS: BP 127/65
== END 2024-02-21 13:35 | disposition home or self-care (01) | DRG 871 ==
LOC: EDHOLD 17:48 → ED 17:48 → SUATTDRO 02-08 06:05 → MEDTELE 02-08 07:36 → SUATTDRO 02-10 12:00
PROVIDERS: ADMIT Internal Medicine; ATTEND Hospitalist